=== PATIENT | male | born 1945 | race Caucasian/White ===

== ENCOUNTER 2021-01-24 18:15 | Inpatient (IN) | payer MEDICARE ==
[~2021-01-24] VITALS: Ht 177.8 cm; Wt 81.7 kg
[2021-01-24] MEDS ORDERED: NAPR-855 PO (18:52)
[2021-01-24] MEDS ORDERED: VITA1CAP21 PO (18:52)
[2021-01-24] MEDS ORDERED: NOXI1TAB PO (18:52)
[2021-01-24] MEDS ORDERED: SILD20TA11 PO (18:52)
[2021-01-24] MEDS ORDERED: ECOT81TA5 PO (18:52)
[2021-01-24] MEDS ORDERED: NS 1,000 ML IV ONE (19:25)
[2021-01-24 20:01] LABS: BASO % 0.5 % (0.0-1.0); EOS % 0.4 % (0.0-3.0); HEMOGLOBIN 13.2 g/dl (13.5-17.5); LYMPH # 1.4 10^3/uL (1.5-5.0); LYMPH % 17.5 % (24.0-44.0); MEAN CORPUSCULAR HEMOGLOBIN 33.5 pg (27.0-33.0); MEAN CORPUSCULAR HGB CONC 33.8 g/dl (32.0-36.5); MONO # 0.6 10^3/uL (0.0-0.8); MONO % 7.4 % (2.0-8.0); NEUTROPHILS # 5.9 10^3/uL (1.5-8.5); NEUTROPHILS % 73.8 % (36.0-66.0); PLATELET COUNT, AUTOMATED 201 10^3/uL (150-450); RED BLOOD COUNT 3.94 10^6/uL (4.30-6.10)
[2021-01-24 20:15] LABS: INR 1.01; PROTHROMBIN TIME 13.7 SECONDS (12.7-14.5)
[2021-01-24 20:16] LABS: PARTIAL THROMBOPLASTIN TIME 23.1 SECONDS (25.9-37.0)
[2021-01-24 20:34] LABS: ALBUMIN 3.3 GM/DL (3.2-5.2); ALT/SGPT 28 U/L (12-78); BILIRUBIN,TOTAL 0.6 MG/DL (0.2-1.0); BLOOD UREA NITROGEN 16 MG/DL (7-18); CALCIUM LEVEL 8.9 MG/DL (8.8-10.2); CARBON DIOXIDE LEVEL 27 MEQ/L (21-32); CHLORIDE LEVEL 109 MEQ/L (98-107); CREATININE FOR GFR 1.07 MG/DL (0.70-1.30); GLOMERULAR FILTRATION RATE > 60.0 (>42); GLUCOSE, FASTING 125 MG/DL (70-100); POTASSIUM SERUM 4.2 MEQ/L (3.5-5.1); SODIUM LEVEL 145 MEQ/L (136-145); TOTAL PROTEIN 6.5 GM/DL (6.4-8.2)
[2021-01-24 20:39] LABS: CK-MB VALUE MASS < 1.0 NG/ML (<3.6); CPK CREATINE PHOSPHOKINASE 81 U/L (39-308); LIPASE 283 U/L (73-393); MB/CK RELATIVE INDEX 1.23 (< OR =4); TROPONIN I < 0.02 NG/ML (< 0.10)
[2021-01-24] MEDS ORDERED: LORazepam 2 MG TAB PO PRN (22:25)
[2021-01-24] MEDS ORDERED: MOM 30ML SUSPENSION UDC PO PRN (22:25)
[2021-01-24] MEDS ORDERED: ACETAMINOPHEN TAB 650MG DOSE (2X325MG) PO PRN (22:25)
[2021-01-24] MEDS ORDERED: PRESCAP PO (22:51)
[2021-01-24] MEDS ORDERED: ALEV220T22 PO (22:51)
[2021-01-24] MEDS ORDERED: HOME MED LIST COMPLETE! XX SCH (22:55)
[2021-01-24 23:26] LABS: RSV AMPLIFICATION NEGATIVE (NEGATIVE)
[2021-01-25] VITALS (8 sets, daily range): BP systolic 103–153; BP diastolic 55–82
[2021-01-25] MEDS: THIAMINE 100 MG TAB PO SCH ×3 (00:54→20:27)
[2021-01-25] MEDS: PANTOPRAZOLE 40MG VIAL (C9113 PER 1) IV SCH ×3 (00:54→20:27)
[2021-01-25 03:08] LABS: HEMATOCRIT 32.6 % (42.0-52.0); MEAN CORPUSCULAR HEMOGLOBIN 33.3 pg (27.0-33.0); MEAN CORPUSCULAR HGB CONC 33.1 g/dl (32.0-36.5); MEAN CORPUSCULAR VOLUME 100.6 fl (80.0-96.0); PLATELET COUNT, AUTOMATED 174 10^3/uL (150-450); RED BLOOD COUNT 3.24 10^6/uL (4.30-6.10); WHITE BLOOD COUNT 5.6 10^3/uL (4.0-10.0)
[2021-01-25 03:11] LABS: HEMOGLOBIN 10.8 g/dl (13.5-17.5)
[2021-01-25 03:33] LABS: ALBUMIN 2.7 GM/DL (3.2-5.2); ALT/SGPT 24 U/L (12-78); BILIRUBIN,TOTAL 0.8 MG/DL (0.2-1.0); BLOOD UREA NITROGEN 16 MG/DL (7-18); CALCIUM LEVEL 7.9 MG/DL (8.8-10.2); CARBON DIOXIDE LEVEL 29 MEQ/L (21-32); CHLORIDE LEVEL 113 MEQ/L (98-107); CREATININE FOR GFR 0.84 MG/DL (0.70-1.30); GLOMERULAR FILTRATION RATE > 60.0 (>42); GLUCOSE, FASTING 102 MG/DL (70-100); MAGNESIUM LEVEL 1.9 MG/DL (1.8-2.4); POTASSIUM SERUM 3.8 MEQ/L (3.5-5.1); SODIUM LEVEL 147 MEQ/L (136-145); TOTAL PROTEIN 5.8 GM/DL (6.4-8.2)
[2021-01-25] MEDS: MULTIVITAMINS/MINERALS THERAP 1 TAB PO SCH (08:13)
[2021-01-25] MEDS: FOLIC ACID 1 MG TAB PO SCH (08:14)
[2021-01-25] MEDS ORDERED: SLF 3 ML SYR IV PRN (09:00)
[2021-01-25 10:25] LABS: HEMATOCRIT 31.1 % (42.0-52.0); HEMOGLOBIN 10.3 g/dl (13.5-17.5)
[2021-01-25] MEDS ORDERED: MOM 30ML SUSPENSION UDC PO ONE (13:00)
[2021-01-25] MEDS: SLF 3 ML SYR IV SCH ×2 (13:43→20:27)
[2021-01-25 14:36] LABS: HEMATOCRIT 33.3 % (42.0-52.0); HEMOGLOBIN 11.1 g/dl (13.5-17.5)
[2021-01-25] MEDS ORDERED: POLYETHYLENE GLYCOL (MIRALAX) 238GM BOTTLE PO ONE (17:00)
[2021-01-25 21:33] LABS: HEMATOCRIT 31.2 % (42.0-52.0); HEMOGLOBIN 10.3 g/dl (13.5-17.5)
[2021-01-26] VITALS (8 sets, daily range): BP systolic 118–134; BP diastolic 54–91
[2021-01-26] MEDS ORDERED: POLYETHYLENE GLYCOL (MIRALAX) 238GM BOTTLE PO ONE (06:00)
[2021-01-26] MEDS: SLF 3 ML SYR IV SCH ×3 (06:02→21:15)
[2021-01-26 07:58] LABS: HEMOGLOBIN 10.2 g/dl (13.5-17.5); MEAN CORPUSCULAR HEMOGLOBIN 33.4 pg (27.0-33.0); MEAN CORPUSCULAR HGB CONC 32.9 g/dl (32.0-36.5); MEAN CORPUSCULAR VOLUME 101.6 fl (80.0-96.0); PLATELET COUNT, AUTOMATED 167 10^3/uL (150-450); RED BLOOD COUNT 3.05 10^6/uL (4.30-6.10)
[2021-01-26] MEDS: THIAMINE 100 MG TAB PO SCH ×2 (08:18→20:44)
[2021-01-26] MEDS: FOLIC ACID 1 MG TAB PO SCH (08:18)
[2021-01-26] MEDS: MULTIVITAMINS/MINERALS THERAP 1 TAB PO SCH (08:18)
[2021-01-26] MEDS: PANTOPRAZOLE 40MG VIAL (C9113 PER 1) IV SCH ×2 (08:18→20:44)
[2021-01-26 08:19] LABS: BLOOD UREA NITROGEN 15 MG/DL (7-18); CALCIUM LEVEL 8.1 MG/DL (8.8-10.2); CARBON DIOXIDE LEVEL 29 MEQ/L (21-32); CHLORIDE LEVEL 112 MEQ/L (98-107); CREATININE FOR GFR 0.97 MG/DL (0.70-1.30); GLOMERULAR FILTRATION RATE > 60.0 (>42); GLUCOSE, FASTING 124 MG/DL (70-100); POTASSIUM SERUM 3.4 MEQ/L (3.5-5.1); SODIUM LEVEL 144 MEQ/L (136-145)
[2021-01-26] MEDS ORDERED: propofoL 200 MG/20 ML VIAL As Ordered ONE ×2 (08:50→14:02)
[2021-01-26] MEDS ORDERED: LIDOCAINE 2% 100MG/5ML SDV (FOR ANES.) As Ordered ONE (08:50)
[2021-01-26] MEDS ORDERED: POTASSIUM CHLORIDE 10MEQ SR TABLET PO ONE (11:55)
[2021-01-27] VITALS: BP 106/52
[2021-01-27] MEDS: SLF 3 ML SYR IV SCH (05:33)
[2021-01-27 06:00] VITALS: BP 102/60
[2021-01-27 06:44] LABS: HEMATOCRIT 27.7 % (42.0-52.0); HEMOGLOBIN 9.2 g/dl (13.5-17.5); MEAN CORPUSCULAR HEMOGLOBIN 33.7 pg (27.0-33.0); MEAN CORPUSCULAR HGB CONC 33.2 g/dl (32.0-36.5); MEAN CORPUSCULAR VOLUME 101.5 fl (80.0-96.0); PLATELET COUNT, AUTOMATED 155 10^3/uL (150-450); RED BLOOD COUNT 2.73 10^6/uL (4.30-6.10); WHITE BLOOD COUNT 5.2 10^3/uL (4.0-10.0)
[2021-01-27 07:08] LABS: BLOOD UREA NITROGEN 11 MG/DL (7-18); CALCIUM LEVEL 7.8 MG/DL (8.8-10.2); CARBON DIOXIDE LEVEL 26 MEQ/L (21-32); CHLORIDE LEVEL 113 MEQ/L (98-107); GLOMERULAR FILTRATION RATE > 60.0 (>42); GLUCOSE, FASTING 86 MG/DL (70-100); POTASSIUM SERUM 3.7 MEQ/L (3.5-5.1); SODIUM LEVEL 145 MEQ/L (136-145)
[2021-01-27 08:28] VITALS: BP 110/59
[2021-01-27] MEDS: THIAMINE 100 MG TAB PO SCH (08:29)
[2021-01-27] MEDS: MULTIVITAMINS/MINERALS THERAP 1 TAB PO SCH (08:29)
[2021-01-27] MEDS: PANTOPRAZOLE 40MG VIAL (C9113 PER 1) IV SCH (08:30)
[2021-01-27] MEDS: FOLIC ACID 1 MG TAB PO SCH (08:30)
[2021-01-27 10:00] VITALS: BP 116/60
[2021-01-27] MEDS ORDERED: VITMTA PO (11:38)
[2021-01-27] MEDS ORDERED: FOLI1TAB11 PO (11:38)
[2021-01-27] MEDS ORDERED: THIA100TA PO (11:38)
[2021-01-27] MEDS ORDERED: PROTPAK PO (11:42)
== END 2021-01-27 13:51 | disposition home or self-care (01) | DRG 378 ==
LOC: M ED 18:15 → EDBD 18:15 → M ED INP 18:16 → M PCU 01-25 00:10 → M MSPAV 01-25 18:50
PROVIDERS: ADMIT Family Medicine; ATTEND Internal Medicine
PROC: 0W3P8ZZ Control Bleeding in Gastrointestinal Tract, Via Natural or Artificial Opening Endoscopic (ICD-10-PCS; 2021-01-26)
PROC: 0DBN8ZX Excision of Sigmoid Colon, Via Natural or Artificial Opening Endoscopic, Diagnostic (ICD-10-PCS; 2021-01-26)
PROC: 0DBK8ZX Excision of Ascending Colon, Via Natural or Artificial Opening Endoscopic, Diagnostic (ICD-10-PCS; 2021-01-26)
PROC: 0DBH8ZX Excision of Cecum, Via Natural or Artificial Opening Endoscopic, Diagnostic (ICD-10-PCS; principal; 2021-01-26 13:50)
DX: K92.2 Gastrointestinal hemorrhage, unspecified (principal); D62 Acute posthemorrhagic anemia; R03.0 Elevated blood-pressure reading, without diagnosis of hypertension; F10.10 Alcohol abuse, uncomplicated; G40.909 Epilepsy, unspecified, not intractable, without status epilepticus; Z98.41 Cataract extraction status, right eye; Z98.42 Cataract extraction status, left eye; Z79.82 Long term (current) use of aspirin; Z20.822 Contact with and (suspected) exposure to COVID-19; M54.5 Low back pain; K22.70 Barrett's esophagus without dysplasia; K29.70 Gastritis, unspecified, without bleeding; K63.5 Polyp of colon; K64.8 Other hemorrhoids; K57.30 Diverticulosis of large intestine without perforation or abscess without bleeding

== ENCOUNTER 2021-08-07 13:16 | Emergency (ER) | payer MEDICARE ==
[~2021-08-07] VITALS: Ht 177.8 cm; Wt 85.2 kg
[~2021-08-07 13:16] MED LIST: ALEV220T22 PO; ECOT81TA5 PO; FOLI1TAB11 PO; NAPR-855 PO; NOXI1TAB PO; PRESCAP PO; PROTPAK PO; SILD20TA11 PO; THIA100TA PO; VITA1CAP21 PO; VITMTA PO
[2021-08-07 15:23] LABS: BASO % 0.7 % (0.0-1.0); EOS # 0.1 10^3/uL (0.0-0.5); EOS % 2.1 % (0.0-3.0); HEMATOCRIT 38.7 % (42.0-52.0); HEMOGLOBIN 11.5 g/dl (13.5-17.5); LYMPH # 1.7 10^3/uL (1.5-5.0); LYMPH % 28.4 % (24.0-44.0); MEAN CORPUSCULAR HEMOGLOBIN 23.9 pg (27.0-33.0); MEAN CORPUSCULAR HGB CONC 29.7 g/dl (32.0-36.5); MEAN CORPUSCULAR VOLUME 80.3 fl (80.0-96.0); MONO # 0.5 10^3/uL (0.0-0.8); MONO % 8.6 % (2.0-8.0); NEUTROPHILS # 3.6 10^3/uL (1.5-8.5); PLATELET COUNT, AUTOMATED 287 10^3/uL (150-450); RED BLOOD COUNT 4.82 10^6/uL (4.30-6.10); WHITE BLOOD COUNT 6.1 10^3/uL (4.0-10.0)
[2021-08-07 15:34] LABS: PROTHROMBIN TIME 13.6 SECONDS (12.7-14.5)
[2021-08-07 15:35] LABS: PARTIAL THROMBOPLASTIN TIME 26.5 SECONDS (25.9-37.0)
[2021-08-07 15:56] LABS: BLOOD UREA NITROGEN 11 MG/DL (7-18); CALCIUM LEVEL 8.8 MG/DL (8.8-10.2); CARBON DIOXIDE LEVEL 27 MEQ/L (21-32); CHLORIDE LEVEL 108 MEQ/L (98-107); GLOMERULAR FILTRATION RATE > 60.0 (>42); GLUCOSE, FASTING 101 MG/DL (70-100); NT-PRO BNP 328 PG/ML (<450); POTASSIUM SERUM 4.3 MEQ/L (3.5-5.1); SODIUM LEVEL 142 MEQ/L (136-145)
[2021-08-07 16:00] VITALS: BP 170/88
== END 2021-08-07 16:07 | disposition home or self-care (01) ==
LOC: M ED 13:16
DX: I82.432 Acute embolism and thrombosis of left popliteal vein (principal)

== ENCOUNTER 2021-08-26 18:56 | Emergency (ER) | payer MEDICARE ==
[~2021-08-26] VITALS: Ht 177.8 cm; Wt 85.0 kg
[2021-08-26] MEDS ORDERED: MORPHINE 4 MG/ML 1ML VIAL/SYRINGE (J2270) IV ONE (19:20)
[2021-08-26] MEDS ORDERED: ONDANSETRON 4MG/2ML VIAL IV ONE (19:20)
[2021-08-26 19:39] LABS: BASO # 0.1 10^3/uL (0.0-0.2); BASO % 0.9 % (0.0-1.0); EOS # 0.1 10^3/uL (0.0-0.5); EOS % 2.1 % (0.0-3.0); HEMATOCRIT 40.3 % (42.0-52.0); HEMOGLOBIN 12.3 g/dl (13.5-17.5); LYMPH # 2.8 10^3/uL (1.5-5.0); MEAN CORPUSCULAR HGB CONC 30.5 g/dl (32.0-36.5); MEAN CORPUSCULAR VOLUME 78.6 fl (80.0-96.0); MONO # 0.9 10^3/uL (0.0-0.8); MONO % 13.2 % (2.0-8.0); NEUTROPHILS # 2.8 10^3/uL (1.5-8.5); NEUTROPHILS % 41.7 % (36.0-66.0); PLATELET COUNT, AUTOMATED 261 10^3/uL (150-450); RED BLOOD COUNT 5.13 10^6/uL (4.30-6.10); WHITE BLOOD COUNT 6.7 10^3/uL (4.0-10.0)
[2021-08-26] MEDS ORDERED: GI COCKTAIL 50ML BTL(HYOSCYAMINE/MAALOX/LIDOCAINE VISCOUS)(1:3:1) PO ONE (19:50)
[2021-08-26] MEDS ORDERED: NS 1,000 ML IV ONE ×2 (19:50→20:20)
[2021-08-26 20:03] LABS: ALBUMIN 3.4 GM/DL (3.2-5.2); BILIRUBIN,DIRECT 0.1 MG/DL (0.0-0.2); BILIRUBIN,TOTAL 0.3 MG/DL (0.2-1.0); TOTAL PROTEIN 7.3 GM/DL (6.4-8.2)
[2021-08-26] MEDS ORDERED: ISOVUE-370 76% 100ML VIAL As Ordered ONE (20:09)
[2021-08-26] MEDS ORDERED: VITA100T28 PO (21:26)
[2021-08-26] MEDS ORDERED: THERTAB52 PO (21:26)
[2021-08-26 21:27] LABS: CK-MB VALUE MASS < 1.0 NG/ML (<3.6); CPK CREATINE PHOSPHOKINASE 59 U/L (39-308); MB/CK RELATIVE INDEX 1.69 (< OR =4)
[2021-08-26] MEDS ORDERED: HEPARIN DRIP 25,000 UNITS in IV 1 EA IV SCH (21:30)
[2021-08-26] MEDS ORDERED: HOME MED LIST COMPLETE! XX SCH (21:30)
[2021-08-26 22:00] LABS: RSV AMPLIFICATION NEGATIVE (NEGATIVE)
[2021-08-26 23:10] LABS: INR 1.05; PROTHROMBIN TIME 14.1 SECONDS (12.7-14.5)
[2021-08-26 23:11] LABS: PARTIAL THROMBOPLASTIN TIME 30.5 SECONDS (25.9-37.0)
[2021-08-26] MEDS ORDERED: CALCIUM CARBONATE 500 MG CHEW U/D PO ONE (23:30)
[2021-08-27 00:36] LABS: INR 1.07; PROTHROMBIN TIME 14.3 SECONDS (12.7-14.5)
[2021-08-27 00:38] LABS: PARTIAL THROMBOPLASTIN TIME 94.9 SECONDS (25.9-37.0)
[2021-08-27] MEDS ORDERED: HEPARIN DRIP 25,000 UNITS in IV 1 EA IV SCH (01:00)
[2021-08-27] MEDS ORDERED: CALCIUM CARBONATE 500 MG CHEW U/D PO ONE (02:20)
[2021-08-27 02:38] VITALS: BP 151/75
== END 2021-08-27 02:45 | disposition short-term general hospital (02) ==
LOC: M ED 18:56
DX: K85.90 Acute pancreatitis without necrosis or infection, unspecified (principal); K22.719 Barrett's esophagus with dysplasia, unspecified; I72.2 Aneurysm of renal artery; I48.3 Typical atrial flutter; I26.99 Other pulmonary embolism without acute cor pulmonale; I82.409 Acute embolism and thrombosis of unspecified deep veins of unspecified lower extremity; F41.8 Other specified anxiety disorders; F10.10 Alcohol abuse, uncomplicated; Z79.899 Other long term (current) drug therapy
CPT/HCPCS: 71260; 74177; 80047; 80076; 82550; 82553; 83605; 83690; 83880; 84484; 85025; 85610; 85730; 87631; 93005; 93041; 93971; 96365; 96366; 96375; 99285; J1644; J2270; J2405; Q9967

== ENCOUNTER 2022-01-25 01:40 | Emergency (ER) | payer MEDICARE ==
[~2022-01-25 01:40] MED LIST changes: +THERTAB52 PO; +VITA100T28 PO
[2022-01-25 02:25] LABS: BASO % 0.5 % (0.0-1.0); EOS % 0.2 % (0.0-3.0); HEMATOCRIT 37.3 % (42.0-52.0); LYMPH % 12.2 % (24.0-44.0); MEAN CORPUSCULAR HEMOGLOBIN 24.8 pg (27.0-33.0); MEAN CORPUSCULAR HGB CONC 32.2 g/dl (32.0-36.5); MEAN CORPUSCULAR VOLUME 77.2 fl (80.0-96.0); MONO # 0.4 10^3/uL (0.0-0.8); MONO % 5.2 % (2.0-8.0); NEUTROPHILS # 6.9 10^3/uL (1.5-8.5); NEUTROPHILS % 81.2 % (36.0-66.0); PLATELET COUNT, AUTOMATED 210 10^3/uL (150-450); RED BLOOD COUNT 4.83 10^6/uL (4.30-6.10); WHITE BLOOD COUNT 8.5 10^3/uL (4.0-10.0)
[2022-01-25 02:36] LABS: INR 1.05; PARTIAL THROMBOPLASTIN TIME 27.7 SECONDS (25.9-37.0); PROTHROMBIN TIME 14.1 SECONDS (12.7-14.5)
[2022-01-25 02:53] LABS: ALBUMIN 3.5 GM/DL (3.2-5.2); ALT/SGPT 26 U/L (12-78); BILIRUBIN,DIRECT 0.3 MG/DL (0.0-0.2); BILIRUBIN,TOTAL 0.7 MG/DL (0.2-1.0); BLOOD UREA NITROGEN 11 MG/DL (7-18); CALCIUM LEVEL 9.9 MG/DL (8.8-10.2); CARBON DIOXIDE LEVEL 26 MEQ/L (21-32); CHLORIDE LEVEL 101 MEQ/L (98-107); CREATININE FOR GFR 0.93 MG/DL (0.70-1.30); GLOMERULAR FILTRATION RATE > 60.0 (>42); GLUCOSE, FASTING 145 MG/DL (70-100); LIPASE 296 U/L (73-393); POTASSIUM SERUM 3.6 MEQ/L (3.5-5.1); SODIUM LEVEL 136 MEQ/L (136-145); TOTAL PROTEIN 7.7 GM/DL (6.4-8.2)
[2022-01-25 03:58] LABS: ETHYL ALCOHOL (ETHANOL) < 0.003 % (0.000-0.010)
[2022-01-25] MEDS ORDERED: ONDANSETRON 4MG 2ML VIAL IV ONE (04:00)
[2022-01-25] MEDS ORDERED: ISOVUE-370 76% 100ML VIAL As Ordered ONE (04:01)
[2022-01-25] MEDS: MORPHINE 4 MG/ML 1ML VIAL/SYRINGE IV PRN ×2 (04:26→06:53)
[2022-01-25] MEDS ORDERED: HYDR-3713 PO (08:28)
[2022-01-25 08:41] VITALS: BP 174/81
== END 2022-01-25 09:03 | disposition home or self-care (01) ==
LOC: M ED 01:40 → EDBD 01:40 → M ED 09:03
DX: R10.13 Epigastric pain (principal); I10 Essential (primary) hypertension; F10.10 Alcohol abuse, uncomplicated; M54.50 Low back pain, unspecified; Z87.442 Personal history of urinary calculi
CPT/HCPCS: 74177; 80048; 80076; 82077; 83605; 83690; 85025; 85610; 85730; 86850; 86900; 86901; 96374; 96375; 96376; 99284; J2270; J2405; Q9967

== ENCOUNTER 2022-04-28 19:09 | Emergency (ER) | payer MEDICARE ==
[~2022-04-28] VITALS: Ht 177.8 cm; Wt 84.1 kg
[~2022-04-28 19:09] MED LIST changes: +HYDR-3713 PO
[2022-04-28 20:01] LABS: BASO % 0.5 % (0.0-1.0); EOS # 0.1 10^3/uL (0.0-0.5); EOS % 1.4 % (0.0-3.0); HEMATOCRIT 39.6 % (42.0-52.0); HEMOGLOBIN 12.4 g/dl (13.5-17.5); LYMPH # 1.9 10^3/uL (1.5-5.0); LYMPH % 29.2 % (24.0-44.0); MEAN CORPUSCULAR HEMOGLOBIN 25.1 pg (27.0-33.0); MEAN CORPUSCULAR HGB CONC 31.3 g/dl (32.0-36.5); MONO # 0.6 10^3/uL (0.0-0.8); MONO % 9.5 % (2.0-8.0); NEUTROPHILS # 3.9 10^3/uL (1.5-8.5); NEUTROPHILS % 59.2 % (36.0-66.0); PLATELET COUNT, AUTOMATED 252 10^3/uL (150-450); RED BLOOD COUNT 4.95 10^6/uL (4.30-6.10); WHITE BLOOD COUNT 6.6 10^3/uL (4.0-10.0)
[2022-04-28] MEDS ORDERED: MORPHINE 4 MG/ML 1ML VIAL/SYRINGE IV ONE ×2 (20:10→20:40)
[2022-04-28] MEDS ORDERED: NS 1,000 ML IV ONE (20:10)
[2022-04-28] MEDS ORDERED: ONDANSETRON 4MG 2ML VIAL IV ONE (20:10)
[2022-04-28] MEDS ORDERED: ISOVUE-370 76% 100ML VIAL As Ordered ONE (20:16)
[2022-04-28 20:39] LABS: ALBUMIN 3.7 GM/DL (3.2-5.2); ALT/SGPT 35 U/L (12-78); BILIRUBIN,DIRECT 0.2 MG/DL (0.0-0.2); BILIRUBIN,TOTAL 0.4 MG/DL (0.2-1.0); BLOOD UREA NITROGEN 21 MG/DL (7-18); CALCIUM LEVEL 9.1 MG/DL (8.8-10.2); CARBON DIOXIDE LEVEL 26 MEQ/L (21-32); CHLORIDE LEVEL 105 MEQ/L (98-107); CREATININE FOR GFR 1.01 MG/DL (0.70-1.30); GLOMERULAR FILTRATION RATE > 60.0 (>42); GLUCOSE, FASTING 118 MG/DL (70-100); LIPASE 354 U/L (73-393); POTASSIUM SERUM 3.9 MEQ/L (3.5-5.1); SODIUM LEVEL 140 MEQ/L (136-145); TOTAL PROTEIN 7.9 GM/DL (6.4-8.2)
[2022-04-28] MEDS ORDERED: PANTOPRAZOLE 40MG VIAL IV ONE (22:35)
[2022-04-28] MEDS ORDERED: SUCRALFATE 1 GM TAB PO ONE (22:35)
[2022-04-28] MEDS ORDERED: GI COCKTAIL 50ML BTL(HYOSCYAMINE/MAALOX/LIDOCAINE VISCOUS)(1:3:1) PO ONE (22:35)
[2022-04-28 23:17] VITALS: BP 174/79
[2022-04-28] MEDS ORDERED: ASPIRIN 81 MG CHEW TABLET PO ONE (23:30)
[2022-04-28 23:55] LABS: INR 1.06
[2022-04-28 23:56] LABS: PARTIAL THROMBOPLASTIN TIME 27.2 SECONDS (24.8-34.2)
[2022-04-28 23:59] LABS: NT-PRO BNP 284 PG/ML (<450)
[2022-04-29] MEDS ORDERED: CARA1TAB6 PO (00:29)
[2022-04-29] MEDS ORDERED: FAMO10TA50 PO (00:29)
[2022-04-29] MEDS ORDERED: OMEP-173 PO (00:29)
[2022-04-29 00:58] LABS: CK-MB VALUE MASS < 1.0 NG/ML (<3.6); CPK CREATINE PHOSPHOKINASE 46 U/L (39-308); MB/CK RELATIVE INDEX 2.17 (< OR =4)
[2022-05-02 10:22] LABS: DRVV SCREEN 34.3 SEC
[2022-05-02 10:29] LABS: PTT LUPUS TYPE ANTICOAG SCREEN 0.9 (0-1.2)
== END 2022-04-29 00:41 | disposition home or self-care (01) ==
LOC: M ED 19:09
DX: K21.9 Gastro-esophageal reflux disease without esophagitis (principal); R10.13 Epigastric pain; K44.9 Diaphragmatic hernia without obstruction or gangrene; H34.12 Central retinal artery occlusion, left eye; I72.2 Aneurysm of renal artery; I49.1 Atrial premature depolarization; I10 Essential (primary) hypertension; Z87.442 Personal history of urinary calculi; Z79.811 Long term (current) use of aromatase inhibitors; Z79.899 Other long term (current) drug therapy
CPT/HCPCS: 74177; 80048; 80076; 81240; 81241; 82550; 82553; 83605; 83690; 83880; 84311; 84484; 85025; 85300; 85301; 85303; 85305; 85610; 85730; 86147; 93005; 96361; 96374; 96375; 99284; C9113; J2270; J2405; Q9967

== ENCOUNTER 2023-06-28 07:24 | Inpatient (IN) | payer MEDICARE, OTHER ==
[~2023-06-28] VITALS: Ht 175.3 cm; Wt 82.8 kg
[2023-06-28] VITALS (8 sets, daily range): BP systolic 140–180; BP diastolic 84–98; TEMP 97.6–97.7; O2SAT 86–95
[~2023-06-28 07:24] MED LIST changes: +CARA1TAB6 PO; +FAMO10TA50 PO; +OMEP-173 PO
[2023-06-28] MEDS ORDERED: ONDANSETRON 4MG 2ML VIAL IV ONE (08:15)
[2023-06-28] MEDS ORDERED: NS 1,000 ML IV SCH (08:15)
[2023-06-28] MEDS: MORPHINE 4 MG/ML 1ML VIAL IV PRN ×2 (09:17→09:43)
[2023-06-28 09:27] LABS: BASO # 0.1 10^3/uL (0.0-0.2); BASO % 0.8 % (0.0-1.0); EOS % 0.4 % (0.0-3.0); HEMATOCRIT 41.7 % (42.0-52.0); HEMOGLOBIN 12.9 g/dl (13.5-17.5); LYMPH # 1.3 10^3/uL (1.5-5.0); LYMPH % 17.2 % (24.0-44.0); MEAN CORPUSCULAR HEMOGLOBIN 23.9 pg (27.0-33.0); MEAN CORPUSCULAR HGB CONC 30.9 g/dl (32.0-36.5); MEAN CORPUSCULAR VOLUME 77.2 fl (80.0-96.0); MONO # 0.5 10^3/uL (0.0-0.8); MONO % 6.3 % (2.0-8.0); NEUTROPHILS # 5.7 10^3/uL (1.5-8.5); PLATELET COUNT, AUTOMATED 278 10^3/uL (150-450); WHITE BLOOD COUNT 7.6 10^3/uL (4.0-10.0)
[2023-06-28 09:29] LABS: INR 1.11
[2023-06-28 09:31] LABS: LIPASE 76 U/L (12-53)
[2023-06-28 09:33] LABS: ALBUMIN 3.8 G/DL (3.2-5.2); ALKALINE PHOSPHATASE 87 U/L (46-116); ALT/SGPT 16 U/L (7.0-40); AST/SGOT 44 U/L (<34); BILIRUBIN,DIRECT 0.2 MG/DL (<0.4); BILIRUBIN,TOTAL 0.7 MG/DL (0.3-1.2); BLOOD UREA NITROGEN 16 MG/DL (9-23); CARBON DIOXIDE LEVEL 28 MMOL/L (20-31); CHLORIDE LEVEL 100 MMOL/L (98-107); CREATININE FOR GFR 0.79 MG/DL (0.70-1.30); GLOMERULAR FILTRATION RATE > 60.0 (>42); GLUCOSE, FASTING 120 MG/DL (74-106); POTASSIUM SERUM 4.4 MMOL/L (3.5-5.1); SODIUM LEVEL 134 MMOL/L (136-145); TOTAL PROTEIN 7.8 G/DL (5.7-8.2)
[2023-06-28] MEDS ORDERED: ISOVUE-370 76% 100ML VIAL As Ordered ONE (10:56)
[2023-06-28] MEDS ORDERED: SUCRALFATE SUSP 1GM/10ML UD PO ONE (12:20)
[2023-06-28] MEDS ORDERED: METOCLOPRAMIDE INJ 10MG/2ML VIAL IV ONE (12:20)
[2023-06-28] MEDS ORDERED: PANTOPRAZOLE 40MG VIAL IV ONE ×2 (12:20→15:00)
[2023-06-28] MEDS ORDERED: MED REC IN PROGRESS XX SCH (13:35)
[2023-06-28] MEDS ORDERED: PANT40TA29 PO (14:51)
[2023-06-28] MEDS ORDERED: ELIQ5TAB PO (14:51)
[2023-06-28] MEDS ORDERED: METO1TAB7 PO (14:51)
[2023-06-28] MEDS ORDERED: HOME MED LIST COMPLETE! XX SCH (15:05)
[2023-06-28 15:41] LABS: HEMATOCRIT 39.2 % (42.0-52.0); HEMOGLOBIN 11.9 g/dl (13.5-17.5)
[2023-06-28] MEDS ORDERED: chlordiazePOXIDE 25 MG CAP PO SCH (16:00)
[2023-06-28] MEDS: THIAMINE 100 MG TAB PO SCH (18:15)
[2023-06-28] MEDS: SUCRALFATE 1 GM TAB PO SCH ×2 (18:15→23:13)
[2023-06-28] MEDS: PANTOPRAZOLE 40MG VIAL IV SCH (19:33)
[2023-06-28] MEDS: LORazepam 2 MG TAB PO PRN ×2 (19:33→23:19)
[2023-06-28] MEDS ORDERED: METOPROLOL TART 25 MG TABLET PO ONE (20:40)
[2023-06-28 22:47] LABS: HEMATOCRIT 35.3 % (42.0-52.0); HEMOGLOBIN 10.9 g/dl (13.5-17.5)
[2023-06-29 03:34] VITALS: BP 154/78; TEMP 97.8; O2SAT 95
[2023-06-29 03:43] VITALS: BP 154/78
[2023-06-29] MEDS: SUCRALFATE 1 GM TAB PO SCH ×4 (05:01→23:53)
[2023-06-29 05:33] LABS: BASO % 0.6 % (0.0-1.0); EOS # 0.1 10^3/uL (0.0-0.5); EOS % 2.2 % (0.0-3.0); HEMATOCRIT 35.3 % (42.0-52.0); HEMOGLOBIN 10.9 g/dl (13.5-17.5); LYMPH # 1.4 10^3/uL (1.5-5.0); LYMPH % 21.6 % (24.0-44.0); MEAN CORPUSCULAR HEMOGLOBIN 24.1 pg (27.0-33.0); MEAN CORPUSCULAR HGB CONC 30.9 g/dl (32.0-36.5); MEAN CORPUSCULAR VOLUME 77.9 fl (80.0-96.0); MONO # 0.5 10^3/uL (0.0-0.8); MONO % 7.2 % (2.0-8.0); NEUTROPHILS # 4.4 10^3/uL (1.5-8.5); NEUTROPHILS % 68.2 % (36.0-66.0); PLATELET COUNT, AUTOMATED 245 10^3/uL (150-450); RED BLOOD COUNT 4.53 10^6/uL (4.30-6.10); WHITE BLOOD COUNT 6.5 10^3/uL (4.0-10.0)
[2023-06-29 06:01] LABS: ALBUMIN 3.1 G/DL (3.2-5.2); ALKALINE PHOSPHATASE 70 U/L (46-116); ALT/SGPT 10 U/L (7.0-40); AST/SGOT 20 U/L (<34); BILIRUBIN,TOTAL 0.9 MG/DL (0.3-1.2); BLOOD UREA NITROGEN 11 MG/DL (9-23); CALCIUM LEVEL 8.3 MG/DL (8.3-10.6); CARBON DIOXIDE LEVEL 31 MMOL/L (20-31); CHLORIDE LEVEL 104 MMOL/L (98-107); CREATININE FOR GFR 0.84 MG/DL (0.70-1.30); GLOMERULAR FILTRATION RATE > 60.0 (>42); GLUCOSE, FASTING 91 MG/DL (74-106); MAGNESIUM LEVEL 1.8 MG/DL (1.8-2.4); SODIUM LEVEL 138 MMOL/L (136-145); TOTAL PROTEIN 6.3 G/DL (5.7-8.2)
[2023-06-29 08:00] VITALS: BP 162/74; TEMP 99; O2SAT 97
[2023-06-29] MEDS: THIAMINE 100 MG TAB PO SCH ×2 (08:49→20:06)
[2023-06-29] MEDS: MULTIVITAMINS/MINERALS THERAP 1 TAB PO SCH (08:49)
[2023-06-29] MEDS: FOLIC ACID 1MG TAB PO SCH (08:49)
[2023-06-29] MEDS: PANTOPRAZOLE 40MG VIAL IV SCH ×2 (08:49→20:06)
[2023-06-29] MEDS: METOPROLOL SUCC (TopROL XL) 50MG **XL** TAB PO SCH (08:50)
[2023-06-29 16:00] VITALS: BP 151/71; TEMP 98.6; O2SAT 96
[2023-06-29 20:00] VITALS: BP 124/60; TEMP 97.2; O2SAT 96
[2023-06-30 04:37] VITALS: BP 124/58; TEMP 97.8; O2SAT 95
[2023-06-30 05:15] LABS: BASO # 0.1 10^3/uL (0.0-0.2); BASO % 0.8 % (0.0-1.0); EOS # 0.2 10^3/uL (0.0-0.5); EOS % 3.1 % (0.0-3.0); HEMOGLOBIN 10.6 g/dl (13.5-17.5); LYMPH # 2.4 10^3/uL (1.5-5.0); LYMPH % 38.4 % (24.0-44.0); MEAN CORPUSCULAR HEMOGLOBIN 24.2 pg (27.0-33.0); MEAN CORPUSCULAR HGB CONC 31.2 g/dl (32.0-36.5); MEAN CORPUSCULAR VOLUME 77.6 fl (80.0-96.0); MONO # 0.5 10^3/uL (0.0-0.8); MONO % 7.6 % (2.0-8.0); NEUTROPHILS # 3.2 10^3/uL (1.5-8.5); NEUTROPHILS % 49.9 % (36.0-66.0); PLATELET COUNT, AUTOMATED 250 10^3/uL (150-450); RED BLOOD COUNT 4.38 10^6/uL (4.30-6.10); WHITE BLOOD COUNT 6.4 10^3/uL (4.0-10.0)
[2023-06-30] MEDS: SUCRALFATE 1 GM TAB PO SCH ×3 (05:29→18:08)
[2023-06-30 05:52] LABS: ALBUMIN 2.8 G/DL (3.2-5.2); ALKALINE PHOSPHATASE 63 U/L (46-116); ALT/SGPT 12 U/L (7.0-40); AST/SGOT 22 U/L (<34); BILIRUBIN,TOTAL 0.7 MG/DL (0.3-1.2); BLOOD UREA NITROGEN 10 MG/DL (9-23); CARBON DIOXIDE LEVEL 30 MMOL/L (20-31); CHLORIDE LEVEL 107 MMOL/L (98-107); CREATININE FOR GFR 0.93 MG/DL (0.70-1.30); GLOMERULAR FILTRATION RATE > 60.0 (>42); GLUCOSE, FASTING 95 MG/DL (74-106); MAGNESIUM LEVEL 1.8 MG/DL (1.8-2.4); POTASSIUM SERUM 3.8 MMOL/L (3.5-5.1); SODIUM LEVEL 139 MMOL/L (136-145); TOTAL PROTEIN 5.8 G/DL (5.7-8.2)
[2023-06-30 09:19] VITALS: BP 124/60; TEMP 98.3; O2SAT 96
[2023-06-30] MEDS: PANTOPRAZOLE 40MG VIAL IV SCH ×2 (09:30→21:25)
[2023-06-30] MEDS: THIAMINE 100 MG TAB PO SCH ×2 (09:31→21:25)
[2023-06-30] MEDS: METOPROLOL SUCC (TopROL XL) 50MG **XL** TAB PO SCH (09:31)
[2023-06-30] MEDS: MULTIVITAMINS/MINERALS THERAP 1 TAB PO SCH (09:31)
[2023-06-30] MEDS: FOLIC ACID 1MG TAB PO SCH (09:32)
[2023-06-30] MEDS ORDERED: OCTREOTIDE ACETATE 100MCG/ML VIAL **IV ADMINISTRATION ONLY IV SCH (14:00)
[2023-06-30 17:00] VITALS: BP 110/56; TEMP 98.3; O2SAT 97
[2023-06-30 19:48] VITALS: BP 113/57; TEMP 98; O2SAT 82
[2023-07-01] VITALS (8 sets, daily range): BP systolic 119–156; BP diastolic 56–75; TEMP 97.7–98.6; O2SAT 96–100
[2023-07-01] MEDS: SUCRALFATE 1 GM TAB PO SCH ×4 (00:14→17:28)
[2023-07-01 05:18] LABS: BASO % 0.5 % (0.0-1.0); EOS # 0.2 10^3/uL (0.0-0.5); EOS % 3.2 % (0.0-3.0); HEMOGLOBIN 10.5 g/dl (13.5-17.5); LYMPH # 2.3 10^3/uL (1.5-5.0); LYMPH % 36.3 % (24.0-44.0); MEAN CORPUSCULAR HEMOGLOBIN 24.1 pg (27.0-33.0); MEAN CORPUSCULAR HGB CONC 30.9 g/dl (32.0-36.5); MONO # 0.5 10^3/uL (0.0-0.8); MONO % 8.5 % (2.0-8.0); NEUTROPHILS # 3.3 10^3/uL (1.5-8.5); NEUTROPHILS % 51.3 % (36.0-66.0); PLATELET COUNT, AUTOMATED 248 10^3/uL (150-450); RED BLOOD COUNT 4.36 10^6/uL (4.30-6.10); WHITE BLOOD COUNT 6.3 10^3/uL (4.0-10.0)
[2023-07-01 05:40] LABS: ALBUMIN 2.8 G/DL (3.2-5.2); ALKALINE PHOSPHATASE 63 U/L (46-116); ALT/SGPT 12 U/L (7.0-40); AST/SGOT 22 U/L (<34); BILIRUBIN,TOTAL 0.4 MG/DL (0.3-1.2); BLOOD UREA NITROGEN 11 MG/DL (9-23); CALCIUM LEVEL 8.1 MG/DL (8.3-10.6); CARBON DIOXIDE LEVEL 29 MMOL/L (20-31); CHLORIDE LEVEL 107 MMOL/L (98-107); CREATININE FOR GFR 1.02 MG/DL (0.70-1.30); GLOMERULAR FILTRATION RATE > 60.0 (>42); GLUCOSE, FASTING 108 MG/DL (74-106); MAGNESIUM LEVEL 1.8 MG/DL (1.8-2.4); POTASSIUM SERUM 3.8 MMOL/L (3.5-5.1); SODIUM LEVEL 139 MMOL/L (136-145); TOTAL PROTEIN 5.9 G/DL (5.7-8.2)
[2023-07-01] MEDS: FOLIC ACID 1MG TAB PO SCH (09:52)
[2023-07-01] MEDS: MULTIVITAMINS/MINERALS THERAP 1 TAB PO SCH (09:52)
[2023-07-01] MEDS: PANTOPRAZOLE 40MG VIAL IV SCH ×2 (09:52→20:35)
[2023-07-01] MEDS: THIAMINE 100 MG TAB PO SCH (09:52)
[2023-07-01] MEDS: METOPROLOL SUCC (TopROL XL) 50MG **XL** TAB PO SCH (09:54)
[2023-07-02] MEDS: SUCRALFATE 1 GM TAB PO SCH ×3 (00:21→14:28)
[2023-07-02 04:15] VITALS: BP 152/68; TEMP 98.1; O2SAT 96
[2023-07-02 06:15] LABS: BASO # 0.1 10^3/uL (0.0-0.2); BASO % 1.1 % (0.0-1.0); EOS # 0.2 10^3/uL (0.0-0.5); HEMOGLOBIN 10.9 g/dl (13.5-17.5); LYMPH # 2.1 10^3/uL (1.5-5.0); LYMPH % 38.1 % (24.0-44.0); MEAN CORPUSCULAR HEMOGLOBIN 23.6 pg (27.0-33.0); MEAN CORPUSCULAR HGB CONC 30.3 g/dl (32.0-36.5); MEAN CORPUSCULAR VOLUME 78.1 fl (80.0-96.0); MONO # 0.5 10^3/uL (0.0-0.8); MONO % 9.9 % (2.0-8.0); NEUTROPHILS # 2.6 10^3/uL (1.5-8.5); NEUTROPHILS % 46.5 % (36.0-66.0); PLATELET COUNT, AUTOMATED 245 10^3/uL (150-450); RED BLOOD COUNT 4.61 10^6/uL (4.30-6.10); WHITE BLOOD COUNT 5.5 10^3/uL (4.0-10.0)
[2023-07-02 06:47] LABS: ALKALINE PHOSPHATASE 62 U/L (46-116); ALT/SGPT 14 U/L (7.0-40); AST/SGOT 22 U/L (<34); BILIRUBIN,TOTAL 0.4 MG/DL (0.3-1.2); BLOOD UREA NITROGEN 11 MG/DL (9-23); CARBON DIOXIDE LEVEL 28 MMOL/L (20-31); CHLORIDE LEVEL 107 MMOL/L (98-107); CREATININE FOR GFR 0.92 MG/DL (0.70-1.30); GLOMERULAR FILTRATION RATE > 60.0 (>42); GLUCOSE, FASTING 93 MG/DL (74-106); MAGNESIUM LEVEL 1.7 MG/DL (1.8-2.4); POTASSIUM SERUM 3.8 MMOL/L (3.5-5.1); SODIUM LEVEL 141 MMOL/L (136-145)
[2023-07-02] MEDS ORDERED: PROMETHAZINE 25MG/ML 1ML VIAL IV PRN (10:30)
[2023-07-02] MEDS ORDERED: fentaNYL 100 MCG/2 ML INJECTION IV PRN (10:30)
[2023-07-02] MEDS ORDERED: ONDANSETRON 4MG 2ML VIAL IV PRN ×2 (10:30→12:45)
[2023-07-02] MEDS ORDERED: LR 1,000 ML IV SCH (10:30)
[2023-07-02] MEDS ORDERED: fentaNYL 100 MCG/2 ML INJECTION As Ordered ONE (10:45)
[2023-07-02] MEDS ORDERED: propofoL 200 MG/20 ML VIAL As Ordered ONE (10:45)
[2023-07-02] MEDS ORDERED: LIDOCAINE 2% 100MG/5ML SDV (FOR ANES.) As Ordered ONE (10:45)
[2023-07-02] MEDS ORDERED: ONDANSETRON 4MG 2ML VIAL As Ordered ONE (10:46)
[2023-07-02] MEDS ORDERED: PROT1TAB2 PO (11:28)
[2023-07-02] MEDS ORDERED: SUCR1TA PO (11:28)
[2023-07-02] MEDS ORDERED: FOLI1TAB11 PO (13:39)
[2023-07-02] MEDS ORDERED: VITMTA PO (13:39)
[2023-07-02 14:00] VITALS: BP 138/65; TEMP 98.1; O2SAT 95
[2023-07-02] MEDS: PANTOPRAZOLE 40MG VIAL IV SCH (14:34)
[2023-07-02] MEDS: METOPROLOL SUCC (TopROL XL) 50MG **XL** TAB PO SCH (14:35)
[2023-07-02] MEDS: FOLIC ACID 1MG TAB PO SCH (14:35)
[2023-07-02] MEDS: MULTIVITAMINS/MINERALS THERAP 1 TAB PO SCH (14:35)
== END 2023-07-02 15:38 | disposition home or self-care (01) | DRG 378 ==
LOC: M ED 07:24 → M ED INP 07:25 → OBSVTOIN 15:56 → M ICU 17:18 → M MSPAV 07-01 17:51
PROVIDERS: ADMIT Internal Medicine; ATTEND Internal Medicine
PROC: 0DB58ZX Excision of Esophagus, Via Natural or Artificial Opening Endoscopic, Diagnostic (ICD-10-PCS; principal; 2023-07-02 10:15)
DX: K92.2 Gastrointestinal hemorrhage, unspecified (principal); D62 Acute posthemorrhagic anemia; K29.20 Alcoholic gastritis without bleeding; K22.6 Gastro-esophageal laceration-hemorrhage syndrome; K92.0 Hematemesis; I10 Essential (primary) hypertension; K44.9 Diaphragmatic hernia without obstruction or gangrene; Z86.718 Personal history of other venous thrombosis and embolism; F10.20 Alcohol dependence, uncomplicated; Z98.41 Cataract extraction status, right eye; Z98.42 Cataract extraction status, left eye; Z79.899 Other long term (current) drug therapy; Z66 Do not resuscitate

== ENCOUNTER 2023-09-04 01:06 | Emergency (ER) | payer MEDICARE, OTHER ==
[~2023-09-04] VITALS: Ht 175.3 cm; Wt 82.0 kg
[~2023-09-04 01:06] MED LIST changes: +ELIQ5TAB PO; +METO1TAB7 PO; +PANT40TA29 PO; +PROT1TAB2 PO; +SUCR1TA PO
[2023-09-04 02:30] LABS: BASO % 0.4 % (0.0-1.0); EOS % 0.3 % (0.0-3.0); HEMATOCRIT 36.1 % (42.0-52.0); HEMOGLOBIN 10.9 g/dl (13.5-17.5); LYMPH # 1.4 10^3/uL (1.5-5.0); LYMPH % 19.9 % (24.0-44.0); MEAN CORPUSCULAR HEMOGLOBIN 22.4 pg (27.0-33.0); MEAN CORPUSCULAR HGB CONC 30.2 g/dl (32.0-36.5); MEAN CORPUSCULAR VOLUME 74.3 fl (80.0-96.0); MONO # 0.5 10^3/uL (0.0-0.8); MONO % 6.6 % (2.0-8.0); NEUTROPHILS # 4.9 10^3/uL (1.5-8.5); NEUTROPHILS % 72.5 % (36.0-66.0); PLATELET COUNT, AUTOMATED 245 10^3/uL (150-450); RED BLOOD COUNT 4.86 10^6/uL (4.30-6.10); WHITE BLOOD COUNT 6.8 10^3/uL (4.0-10.0)
[2023-09-04 02:52] LABS: LIPASE 63 U/L (12-53)
[2023-09-04 02:54] LABS: ALBUMIN 3.6 G/DL (3.2-5.2); ALKALINE PHOSPHATASE 62 U/L (46-116); ALT/SGPT 24 U/L (7.0-40); AST/SGOT 32 U/L (<34); BILIRUBIN,DIRECT 0.2 MG/DL (<0.4); BILIRUBIN,TOTAL 0.6 MG/DL (0.3-1.2); BLOOD UREA NITROGEN 24 MG/DL (9-23); CALCIUM LEVEL 8.4 MG/DL (8.3-10.6); CARBON DIOXIDE LEVEL 27 MMOL/L (20-31); CHLORIDE LEVEL 105 MMOL/L (98-107); CK-MB VALUE MASS < 1.0 NG/ML (<3.6); CPK CREATINE PHOSPHOKINASE 41 U/L (46-171); CREATININE FOR GFR 0.82 MG/DL (0.70-1.30); GLOMERULAR FILTRATION RATE > 60.0 (>42); GLUCOSE, FASTING 120 MG/DL (74-106); MB/CK RELATIVE INDEX 2.43 (< OR =4); POTASSIUM SERUM 4.1 MMOL/L (3.5-5.1); SODIUM LEVEL 137 MMOL/L (136-145); TOTAL PROTEIN 7.4 G/DL (5.7-8.2)
[2023-09-04] MEDS: ONDANSETRON 4MG 2ML VIAL IV ONE (04:18)
[2023-09-04 04:39] LABS: PARTIAL THROMBOPLASTIN TIME 26.4 SECONDS (24.8-34.2)
[2023-09-04 04:52] LABS: CPK CREATINE PHOSPHOKINASE 58 U/L (46-171)
[2023-09-04 04:56] LABS: CK-MB VALUE MASS < 1.0 NG/ML (<3.6); MB/CK RELATIVE INDEX 1.72 (< OR =4)
[2023-09-04] MEDS: MORPHINE 4 MG/ML 1ML VIAL IV ONE (04:57)
[2023-09-04 05:55] VITALS: BP 203/90
[2023-09-04] MEDS: LABETALOL 100MG/20ML VIAL IV STA (05:55)
[2023-09-04 07:31] LABS: INR 1.09; PROTHROMBIN TIME 13.8 SECONDS (12.5-14.5)
[2023-09-04] MEDS: PANTOPRAZOLE 40MG VIAL IV ONE (07:33)
[2023-09-04] MEDS: SUCRALFATE 1 GM TAB PO ONE (07:33)
[2023-09-04 07:39] LABS: ETHYL ALCOHOL (ETHANOL) < 0.003 % (0.000-0.010)
[2023-09-04 08:19] LABS: APPEARANCE, URINE HAZY (CLEAR); BACTERIA, URINE AUTO NEGATIVE (NEGATIVE); BILIRUBIN, URINE AUTO NEGATIVE (NEGATIVE); BLOOD, URINE BLOOD NEGATIVE (NEGATIVE); COLOR, URINE YELLOW (YELLOW); GLUCOSE, URINE (UA) AUTO NEGATIVE (NEGATIVE); KETONE, URINE AUTO 1+ mg/dL (NEGATIVE); LEUKOCYTE ESTERASE, URINE AUTO NEGATIVE (NEGATIVE); MUCUS, URINE LARGE (NEGATIVE); NITRITE, URINE AUTO NEGATIVE (NEGATIVE); PROTEIN, URINE AUTO 1+ mg/dL (NEGATIVE); RBC, URINE AUTO 0 /HPF (0-3); SPECIFIC GRAVITY URINE AUTO 1.025 (1.002-1.035); SQUAMOUS EPITHELIAL CELL UR AU 0 /HPF (0-6); UROBILINOGEN, URINE AUTO 0.2 mg/dL (0.0-2.0); WBC, URINE AUTO 1 /HPF (0-3)
[2023-09-04] MEDS ORDERED: CARA1TAB6 PO (09:23)
[2023-09-04] MEDS ORDERED: ONDA4TAB6 PO (09:25)
[2023-09-04 09:30] VITALS: BP 174/93; TEMP 97.2; O2SAT 95
== END 2023-09-04 09:55 | disposition home or self-care (01) ==
LOC: M ED 01:06
DX: K22.70 Barrett's esophagus without dysplasia (principal); K29.60 Other gastritis without bleeding; I44.0 Atrioventricular block, first degree; F10.10 Alcohol abuse, uncomplicated; Z79.83 Long term (current) use of bisphosphonates; Z79.810 Long term (current) use of selective estrogen receptor modulators (SERMs); Z79.899 Other long term (current) drug therapy
CPT/HCPCS: 71045; 80048; 80076; 81001; 82077; 82550; 82553; 83690; 84484; 85025; 85610; 85730; 86850; 86900; 86901; 93005; 96374; 96375; 99285; C9113; J1920; J2405

== ENCOUNTER 2024-02-06 14:21 | Emergency (ER) | payer OTHER ==
[~2024-02-06] VITALS: Ht 170.2 cm; Wt 90.9 kg
[~2024-02-06 14:21] MED LIST changes: +ONDA-282 PO
[2024-02-06 14:47] VITALS: TEMP 98.1
[2024-02-06 15:38] LABS: BASO # 0.1 10^3/uL (0.0-0.2); BASO % 0.9 % (0.0-1.0); EOS # 0.1 10^3/uL (0.0-0.5); EOS % 1.9 % (0.0-3.0); HEMATOCRIT 31.2 % (42.0-52.0); LYMPH # 1.5 10^3/uL (1.5-5.0); LYMPH % 27.7 % (24.0-44.0); MEAN CORPUSCULAR HEMOGLOBIN 18.9 pg (27.0-33.0); MEAN CORPUSCULAR HGB CONC 28.8 g/dl (32.0-36.5); MEAN CORPUSCULAR VOLUME 65.5 fl (80.0-96.0); MONO # 0.5 10^3/uL (0.0-0.8); MONO % 9.9 % (2.0-8.0); NEUTROPHILS # 3.2 10^3/uL (1.5-8.5); NEUTROPHILS % 59.4 % (36.0-66.0); PLATELET COUNT, AUTOMATED 288 10^3/uL (150-450); RED BLOOD COUNT 4.76 10^6/uL (4.30-6.10); WHITE BLOOD COUNT 5.3 10^3/uL (4.0-10.0)
[2024-02-06 15:57] LABS: INR 1.48; PROTHROMBIN TIME 17.5 SECONDS (12.5-14.5)
[2024-02-06 15:59] LABS: ALBUMIN 3.6 G/DL (3.2-5.2); ALKALINE PHOSPHATASE 77 U/L (46-116); ALT/SGPT 12 U/L (7.0-40); AST/SGOT 23 U/L (<34); BILIRUBIN,DIRECT 0.2 MG/DL (<0.4); BILIRUBIN,TOTAL 0.7 MG/DL (0.3-1.2); BLOOD UREA NITROGEN 12 MG/DL (9-23); CALCIUM LEVEL 8.6 MG/DL (8.3-10.6); CARBON DIOXIDE LEVEL 29 MMOL/L (20-31); CHLORIDE LEVEL 108 MMOL/L (98-107); CREATININE FOR GFR 0.95 MG/DL (0.70-1.30); GLOMERULAR FILTRATION RATE > 60.0 (>35); GLUCOSE, FASTING 97 MG/DL (74-106); MAGNESIUM LEVEL 1.9 MG/DL (1.8-2.4); POTASSIUM SERUM 4.2 MMOL/L (3.5-5.1); SODIUM LEVEL 141 MMOL/L (136-145); TOTAL PROTEIN 7.5 G/DL (5.7-8.2)
[2024-02-06 16:00] VITALS: BP 185/91
[2024-02-06] MEDS ORDERED: ISOVUE-370 76% 100ML VIAL As Ordered ONE (16:11)
[2024-02-06 17:36] VITALS: O2SAT 96
== END 2024-02-06 18:02 | disposition home or self-care (01) ==
LOC: EDBD 14:21 → M ED 14:21
DX: I82.502 Chronic embolism and thrombosis of unspecified deep veins of left lower extremity (principal); K80.20 Calculus of gallbladder without cholecystitis without obstruction; I10 Essential (primary) hypertension; Z79.83 Long term (current) use of bisphosphonates; Z79.899 Other long term (current) drug therapy
CPT/HCPCS: 36415; 71275; 80048; 80076; 83735; 85025; 85610; 85730; 93041; 93971; 94760; 99285; Q9967

== ENCOUNTER 2024-02-27 09:03 | Emergency (ER) | payer OTHER ==
[~2024-02-27] VITALS: Ht 177.8 cm; Wt 87.0 kg
[~2024-02-27 09:03] MED LIST changes: +FERR325T3 PO; +MYSO50TA5 PO; +ZOLP5TAB PO; +prevagen PO
[2024-02-27 11:54] LABS: HEMOGLOBIN 9.2 g/dl (13.5-17.5); MEAN CORPUSCULAR HEMOGLOBIN 18.8 pg (27.0-33.0); MEAN CORPUSCULAR HGB CONC 28.8 g/dl (32.0-36.5); MEAN CORPUSCULAR VOLUME 65.4 fl (80.0-96.0); PLATELET COUNT, AUTOMATED 262 10^3/uL (150-450); RED BLOOD COUNT 4.89 10^6/uL (4.30-6.10); WHITE BLOOD COUNT 5.8 10^3/uL (4.0-10.0)
[2024-02-27 12:07] LABS: BLOOD UREA NITROGEN 14 MG/DL (9-23); CALCIUM LEVEL 8.5 MG/DL (8.3-10.6); CARBON DIOXIDE LEVEL 26 MMOL/L (20-31); CHLORIDE LEVEL 105 MMOL/L (98-107); CREATININE FOR GFR 0.98 MG/DL (0.70-1.30); GLOMERULAR FILTRATION RATE > 60.0 (>35); GLUCOSE, FASTING 85 MG/DL (74-106); POTASSIUM SERUM 4.2 MMOL/L (3.5-5.1); SODIUM LEVEL 137 MMOL/L (136-145)
[2024-02-27] MEDS ORDERED: ISOVUE-370 76% 100ML VIAL As Ordered ONE (12:15)
[2024-02-27 13:57] VITALS: BP 157/70; TEMP 99; O2SAT 98
== END 2024-02-27 15:15 | disposition home or self-care (01) ==
LOC: M ED 09:03
DX: R06.00 Dyspnea, unspecified (principal); I10 Essential (primary) hypertension; M54.50 Low back pain, unspecified; F10.10 Alcohol abuse, uncomplicated; Z79.01 Long term (current) use of anticoagulants; Z79.899 Other long term (current) drug therapy; Z86.718 Personal history of other venous thrombosis and embolism; Z87.442 Personal history of urinary calculi
CPT/HCPCS: 36415; 71275; 80048; 85027; 99284; Q9967

== ENCOUNTER 2024-03-10 05:23 | Emergency (ER) | payer OTHER ==
[~2024-03-10] VITALS: Ht 177.8 cm; Wt 88.1 kg
[2024-03-10 05:39] VITALS: TEMP 96
[2024-03-10] MEDS: METOCLOPRAMIDE INJ 10MG/2ML VIAL IV ONE (05:54)
[2024-03-10 06:30] LABS: BASO # 0.1 10^3/uL (0.0-0.2); BASO % 0.6 % (0.0-1.0); EOS # 0.1 10^3/uL (0.0-0.5); HEMOGLOBIN 8.9 g/dl (13.5-17.5); LYMPH # 1.6 10^3/uL (1.5-5.0); MEAN CORPUSCULAR HEMOGLOBIN 18.4 pg (27.0-33.0); MEAN CORPUSCULAR HGB CONC 28.7 g/dl (32.0-36.5); MEAN CORPUSCULAR VOLUME 64.2 fl (80.0-96.0); MONO # 0.5 10^3/uL (0.0-0.8); MONO % 6.8 % (2.0-8.0); NEUTROPHILS # 5.7 10^3/uL (1.5-8.5); NEUTROPHILS % 71.2 % (36.0-66.0); PLATELET COUNT, AUTOMATED 275 10^3/uL (150-450); RED BLOOD COUNT 4.83 10^6/uL (4.30-6.10)
[2024-03-10 06:55] LABS: ALBUMIN 3.7 G/DL (3.2-5.2); ALKALINE PHOSPHATASE 76 U/L (46-116); ALT/SGPT 11 U/L (7.0-40); AST/SGOT 23 U/L (<34); BILIRUBIN,DIRECT 0.2 MG/DL (<0.4); BILIRUBIN,TOTAL 0.6 MG/DL (0.3-1.2); BLOOD UREA NITROGEN 16 MG/DL (9-23); CALCIUM LEVEL 8.6 MG/DL (8.3-10.6); CARBON DIOXIDE LEVEL 28 MMOL/L (20-31); CHLORIDE LEVEL 98 MMOL/L (98-107); CK-MB VALUE MASS < 1.0 NG/ML (<3.6); CPK CREATINE PHOSPHOKINASE 91 U/L (46-171); CREATININE FOR GFR 0.87 MG/DL (0.70-1.30); GLOMERULAR FILTRATION RATE > 60.0 (>35); GLUCOSE, FASTING 119 MG/DL (74-106); MB/CK RELATIVE INDEX 1.09 (< OR =4); POTASSIUM SERUM 3.8 MMOL/L (3.5-5.1); SODIUM LEVEL 132 MMOL/L (136-145); TOTAL PROTEIN 7.7 G/DL (5.7-8.2)
[2024-03-10 08:14] LABS: CK-MB VALUE MASS < 1.0 NG/ML (<3.6)
[2024-03-10 08:15] LABS: CPK CREATINE PHOSPHOKINASE 92 U/L (46-171); MB/CK RELATIVE INDEX 1.08 (< OR =4)
[2024-03-10 08:23] LABS: MAGNESIUM LEVEL 1.7 MG/DL (1.8-2.4)
[2024-03-10] MEDS: FUROSEMIDE 40MG/4ML VIAL IV ONE (09:01)
[2024-03-10] MEDS ORDERED: HYDR12CA PO (09:54)
[2024-03-10] MEDS ORDERED: SYMB80INH INH (09:54)
[2024-03-10] MEDS ORDERED: HOME MED LIST COMPLETE! XX SCH (10:00)
[2024-03-10] MEDS: MAG SULF 1GM/100ML (MAG RUN) 1 GM in IV 1 EA IV SCH (10:30)
[2024-03-10] MEDS ORDERED: LASI20TA3 PO (10:43)
[2024-03-10 10:50] VITALS: O2SAT 94
[2024-03-10 11:45] VITALS: BP 157/71
== END 2024-03-10 11:56 | disposition home or self-care (01) ==
LOC: M ED 05:23
DX: I50.22 Chronic systolic (congestive) heart failure (principal); J98.11 Atelectasis; I10 Essential (primary) hypertension; K21.9 Gastro-esophageal reflux disease without esophagitis; K74.60 Unspecified cirrhosis of liver; F10.10 Alcohol abuse, uncomplicated; I44.0 Atrioventricular block, first degree; Z79.899 Other long term (current) drug therapy
CPT/HCPCS: 71045; 80048; 80076; 82550; 82553; 83605; 83735; 83880; 84484; 85025; 93005; 93041; 94760; 96374; 96375; 97161; 97530; 99285; J1940; J2765; J3475

== ENCOUNTER 2024-03-22 23:25 | Observation (INO) | payer OTHER ==
[~2024-03-22] VITALS: Ht 177.8 cm; Wt 88.2 kg
[~2024-03-22 23:25] MED LIST changes: +HYDR12CA PO; +LASI20TA3 PO; +SYMB80INH INH
[2024-03-23 01:49] LABS: BASO # 0.1 10^3/uL (0.0-0.2); BASO % 0.6 % (0.0-1.0); EOS # 0.1 10^3/uL (0.0-0.5); EOS % 0.6 % (0.0-3.0); HEMATOCRIT 33.1 % (42.0-52.0); HEMOGLOBIN 9.5 g/dl (13.5-17.5); LYMPH # 1.3 10^3/uL (1.5-5.0); LYMPH % 13.6 % (24.0-44.0); MEAN CORPUSCULAR HEMOGLOBIN 18.3 pg (27.0-33.0); MEAN CORPUSCULAR HGB CONC 28.7 g/dl (32.0-36.5); MEAN CORPUSCULAR VOLUME 63.9 fl (80.0-96.0); MONO # 0.5 10^3/uL (0.0-0.8); MONO % 5.5 % (2.0-8.0); NEUTROPHILS # 7.8 10^3/uL (1.5-8.5); NEUTROPHILS % 79.4 % (36.0-66.0); PLATELET COUNT, AUTOMATED 336 10^3/uL (150-450); RED BLOOD COUNT 5.18 10^6/uL (4.30-6.10); WHITE BLOOD COUNT 9.8 10^3/uL (4.0-10.0)
[2024-03-23 02:11] LABS: LIPASE 81 U/L (12-53)
[2024-03-23 02:13] LABS: ALBUMIN 3.8 G/DL (3.2-5.2); ALKALINE PHOSPHATASE 83 U/L (46-116); ALT/SGPT 16 U/L (7.0-40); AST/SGOT 28 U/L (<34); BILIRUBIN,DIRECT 0.2 MG/DL (<0.4); BILIRUBIN,TOTAL 0.6 MG/DL (0.3-1.2); BLOOD UREA NITROGEN 16 MG/DL (9-23); CALCIUM LEVEL 8.9 MG/DL (8.3-10.6); CARBON DIOXIDE LEVEL 27 MMOL/L (20-31); CHLORIDE LEVEL 105 MMOL/L (98-107); CREATININE FOR GFR 0.96 MG/DL (0.70-1.30); GLOMERULAR FILTRATION RATE > 60.0 (>35); GLUCOSE, FASTING 117 MG/DL (74-106); POTASSIUM SERUM 4.1 MMOL/L (3.5-5.1); SODIUM LEVEL 137 MMOL/L (136-145); TOTAL PROTEIN 7.7 G/DL (5.7-8.2)
[2024-03-23] MEDS: ONDANSETRON 4MG 2ML VIAL IV ONE (02:49)
[2024-03-23] MEDS: MORPHINE 2 MG/ML 1ML VIAL IV PRN (02:50)
[2024-03-23] MEDS ORDERED: ISOVUE-370 76% 100ML VIAL As Ordered ONE (03:02)
[2024-03-23 03:37] LABS: CK-MB VALUE MASS < 1.0 NG/ML (<3.6); CPK CREATINE PHOSPHOKINASE 124 U/L (46-171)
[2024-03-23] MEDS: LORazepam 2 MG TAB PO PRN (03:50)
[2024-03-23] MEDS: hydrALAZINE 20MG/ML 1ML VIAL IV STA (04:04)
[2024-03-23] MEDS: METOCLOPRAMIDE INJ 10MG/2ML VIAL IV ONE (04:05)
[2024-03-23] MEDS: NS 1,000 ML IV ONE (04:38)
[2024-03-23] MEDS: PANTOPRAZOLE 40MG VIAL IV ONE (05:03)
[2024-03-23] MEDS: LABETALOL 100MG/20ML VIAL IV STA (05:08)
[2024-03-23] MEDS: ANEXSIA, NORCO 7.5MG/325MG TABLET(HYDROCODONE/APAP) PO ONE (05:43)
[2024-03-23] MEDS ORDERED: FURO20TA2 PO (06:05)
[2024-03-23] MEDS ORDERED: HOME MED LIST COMPLETE! XX SCH (06:05)
[2024-03-23] MEDS ORDERED: LORazepam 2 MG TAB PO PRN (06:10)
[2024-03-23] MEDS: SUCRALFATE SUSP 1GM/10ML UD PO ONE (06:21)
[2024-03-23] MEDS: HYDROMORPHONE HCL 0.5 MG/ 0.5 ML SYRINGE IV ONE (06:22)
[2024-03-23 07:04] LABS: IRON (FE) 17 UG/DL (65-175); TOTAL IRON BINDING CAPACITY 426 UG/DL (250-425)
[2024-03-23 07:06] LABS: FERRITIN 14.8 NG/ML (10.5-307.3)
[2024-03-23 07:07] LABS: FOLATE 10.99 NG/ML (>5.4); VITAMIN B12 LEVEL 454 PG/ML (211-911)
[2024-03-23] MEDS: SUCRALFATE SUSP 1GM/10ML UD PO SCH (08:03)
[2024-03-23] MEDS: PANTOPRAZOLE 40MG VIAL IV SCH (08:11)
[2024-03-23] MEDS: LR 1,000 ML IV SCH (08:11)
[2024-03-23] MEDS: MULTIVITAMINS/MINERALS THERAP 1 TAB PO SCH (08:11)
[2024-03-23] MEDS: THIAMINE 100 MG TAB PO SCH (08:12)
[2024-03-23] MEDS: FOLIC ACID 1MG TAB PO SCH (08:12)
[2024-03-23] MEDS: APIXABAN 5 MG TAB (ELIQUIS) PO SCH (08:12)
[2024-03-23] MEDS ORDERED: FOLIC ACID 1MG TAB PO SCH (09:00)
[2024-03-23] MEDS: METOPROLOL SUCC (TopROL XL) 50MG **XL** TAB PO SCH (09:00)
[2024-03-23] MEDS ORDERED: MULTIVITAMINS/MINERALS THERAP 1 TAB PO SCH (09:00)
[2024-03-23] MEDS ORDERED: THIAMINE 100 MG TAB PO SCH (09:00)
[2024-03-23 12:00] VITALS: BP 157/82
[2024-03-23 12:06] VITALS: BP 157/82; TEMP 97.2; O2SAT 91
[2024-03-23] MEDS: METOCLOPRAMIDE INJ 10MG/2ML VIAL IV SCH (12:23)
[2024-03-23] MEDS: SYMBICORT 80/4.5MCG INHALER 6GM INH SCH (14:51)
[2024-03-23 20:00] VITALS: BP 153/80; TEMP 97.5; O2SAT 98
[2024-03-24 04:00] VITALS: BP 149/81; TEMP 97.7; O2SAT 97
[2024-03-24 06:07] LABS: HEMATOCRIT 27.4 % (42.0-52.0); HEMOGLOBIN 7.8 g/dl (13.5-17.5); MEAN CORPUSCULAR HEMOGLOBIN 18.5 pg (27.0-33.0); MEAN CORPUSCULAR HGB CONC 28.5 g/dl (32.0-36.5); MEAN CORPUSCULAR VOLUME 64.9 fl (80.0-96.0); PLATELET COUNT, AUTOMATED 250 10^3/uL (150-450); RED BLOOD COUNT 4.22 10^6/uL (4.30-6.10); WHITE BLOOD COUNT 9.9 10^3/uL (4.0-10.0)
[2024-03-24 06:36] LABS: BLOOD UREA NITROGEN 14 MG/DL (9-23); CALCIUM LEVEL 8.3 MG/DL (8.3-10.6); CARBON DIOXIDE LEVEL 26 MMOL/L (20-31); CHLORIDE LEVEL 106 MMOL/L (98-107); CREATININE FOR GFR 0.85 MG/DL (0.70-1.30); GLOMERULAR FILTRATION RATE > 60.0 (>35); GLUCOSE, FASTING 84 MG/DL (74-106); POTASSIUM SERUM 3.9 MMOL/L (3.5-5.1); SODIUM LEVEL 138 MMOL/L (136-145)
[2024-03-24 08:03] VITALS: BP 134/66
[2024-03-24] MEDS ORDERED: SUCR1ORA PO (11:13)
[2024-03-24] MEDS ORDERED: REGL5TAB2 PO (11:13)
[2024-03-24] MEDS ORDERED: IRON65TA2 PO (11:17)
[2024-03-24] MEDS: FERRIC CARBOXYMALTOSE INJ 750 MG, VIAL MATE ADAPTER 1 EACH in NS 250 ML IV ONE (11:27)
== END 2024-03-24 12:48 | disposition home or self-care (01) ==
LOC: EDBD 23:25 → M ED 23:25 → M ED INP 23:26 → M MSPAV 03-23 12:06
PROVIDERS: ADMIT Internal Medicine; ATTEND Internal Medicine
DX: R10.13 Epigastric pain (principal); R06.00 Dyspnea, unspecified; D50.9 Iron deficiency anemia, unspecified; F10.20 Alcohol dependence, uncomplicated; J44.9 Chronic obstructive pulmonary disease, unspecified; I10 Essential (primary) hypertension; Z86.711 Personal history of pulmonary embolism; Z86.718 Personal history of other venous thrombosis and embolism; K22.70 Barrett's esophagus without dysplasia; Z79.01 Long term (current) use of anticoagulants; Z79.899 Other long term (current) drug therapy
CPT/HCPCS: 36415; 71045; 74177; 80048; 80076; 82550; 82553; 82607; 82728; 82746; 83550; 83690; 84484; 85025; 85027; 87486; 87581; 87633; 87798; 93005; 93306; 94640; 96361; 96374; 96375; 96376; 97116; 97161; 99285; G0378; J0360; J1170; J1439; J1920; J2405; J2470; J2765; Q9967

== ENCOUNTER 2024-03-30 03:05 | Inpatient (IN) | payer OTHER ==
[2024-03-30] VITALS (7 sets, daily range): BP systolic 142–220; BP diastolic 73–102; TEMP 97–97.1; O2SAT 89–98
[~2024-03-30] VITALS: Ht 177.8 cm; Wt 77.3 kg
[~2024-03-30 03:05] MED LIST changes: +FURO20TA2 PO; +IRON65TA2 PO; +REGL5TAB2 PO; +SUCR1ORA PO
[2024-03-30] MEDS: ONDANSETRON 4MG 2ML VIAL IV ONE ×2 (04:25→13:17)
[2024-03-30] MEDS: MORPHINE 4 MG/ML 1ML VIAL IV ONE ×3 (04:26→13:19)
[2024-03-30] MEDS: NS 1,000 ML IV ONE (04:28)
[2024-03-30 04:30] LABS: BASO # 0.1 10^3/uL (0.0-0.2); BASO % 0.7 % (0.0-1.0); EOS # 0.1 10^3/uL (0.0-0.5); HEMATOCRIT 35.4 % (42.0-52.0); HEMOGLOBIN 10.1 g/dl (13.5-17.5); LYMPH # 1.5 10^3/uL (1.5-5.0); LYMPH % 20.5 % (24.0-44.0); MEAN CORPUSCULAR HEMOGLOBIN 19.4 pg (27.0-33.0); MEAN CORPUSCULAR HGB CONC 28.5 g/dl (32.0-36.5); MEAN CORPUSCULAR VOLUME 68.1 fl (80.0-96.0); MONO # 0.7 10^3/uL (0.0-0.8); MONO % 9.4 % (2.0-8.0); NEUTROPHILS # 4.9 10^3/uL (1.5-8.5); PLATELET COUNT, AUTOMATED 252 10^3/uL (150-450); WHITE BLOOD COUNT 7.2 10^3/uL (4.0-10.0)
[2024-03-30 05:29] LABS: BLOOD UREA NITROGEN 10 MG/DL (9-23); CALCIUM LEVEL 8.4 MG/DL (8.3-10.6); CARBON DIOXIDE LEVEL 24 MMOL/L (20-31); CHLORIDE LEVEL 101 MMOL/L (98-107); CREATININE FOR GFR 0.94 MG/DL (0.70-1.30); GLOMERULAR FILTRATION RATE > 60.0 (>35); GLUCOSE, FASTING 100 MG/DL (74-106); MAGNESIUM LEVEL 1.9 MG/DL (1.8-2.4); POTASSIUM SERUM 4.2 MMOL/L (3.5-5.1); SODIUM LEVEL 136 MMOL/L (136-145)
[2024-03-30] MEDS ORDERED: ISOVUE-370 76% 100ML VIAL As Ordered ONE (06:36)
[2024-03-30 06:44] LABS: LIPASE 57 U/L (12-53)
[2024-03-30 06:46] LABS: ALBUMIN 3.4 G/DL (3.2-5.2); ALKALINE PHOSPHATASE 92 U/L (46-116); ALT/SGPT 24 U/L (7.0-40); AST/SGOT 50 U/L (<34); BILIRUBIN,DIRECT 0.2 MG/DL (<0.4); BILIRUBIN,TOTAL 0.5 MG/DL (0.3-1.2); TOTAL PROTEIN 7.5 G/DL (5.7-8.2)
[2024-03-30] MEDS ORDERED: TRAM50TA2 PO ×2 (07:10→08:10)
[2024-03-30] MEDS: HYDROMORPHONE HCL 0.5 MG/ 0.5 ML SYRINGE IV ONE (07:24)
[2024-03-30] MEDS ORDERED: METO5TAB2 PO (08:10)
[2024-03-30] MEDS ORDERED: SUCR1TAB56 PO (08:10)
[2024-03-30] MEDS ORDERED: FERR1TAB8 PO (08:12)
[2024-03-30] MEDS ORDERED: HOME MED LIST COMPLETE! XX SCH (08:15)
[2024-03-30 08:19] LABS: CK-MB VALUE MASS < 1.0 NG/ML (<3.6)
[2024-03-30 08:27] LABS: CPK CREATINE PHOSPHOKINASE 87 U/L (46-171); MB/CK RELATIVE INDEX 1.14 (< OR =4)
[2024-03-30] MEDS: THIAMINE 100 MG TAB PO SCH (09:00)
[2024-03-30] MEDS: MULTIVITAMINS/MINERALS THERAP 1 TAB PO SCH (09:00)
[2024-03-30] MEDS: FOLIC ACID 1MG TAB PO SCH (09:00)
[2024-03-30] MEDS: hydroCHLOROthiazide 12.5 MG CAPSULE PO ONE (09:12)
[2024-03-30] MEDS: METOPROLOL SUCC (TopROL XL) 50MG **XL** TAB PO ONE (09:13)
[2024-03-30] MEDS ORDERED: MOM 30ML SUSPENSION UDC PO PRN (09:45)
[2024-03-30] MEDS ORDERED: ACETAMINOPHEN 325 MG TAB PO PRN (09:45)
[2024-03-30] MEDS ORDERED: MAALOX 30 ML SUSP *UDC PO PRN (09:45)
[2024-03-30] MEDS: PANTOPRAZOLE 40MG TAB (PROTONIX) PO SCH (10:24)
[2024-03-30] MEDS: APIXABAN 5 MG TAB (ELIQUIS) PO SCH (10:47)
[2024-03-30 11:14] LABS: INR 1.19; PROTHROMBIN TIME 14.7 SECONDS (12.5-14.5)
[2024-03-30] MEDS ORDERED: LORazepam 2 MG TAB PO PRN (11:35)
[2024-03-30] MEDS: SUCRALFATE 1 GM TAB PO SCH (12:00)
[2024-03-30] MEDS: traMADol 50 MG TAB PO PRN (15:30)
[2024-03-30] MEDS ORDERED: HYDROMORPHONE HCL 0.5 MG/ 0.5 ML SYRINGE IV PRN (16:05)
[2024-03-30] MEDS: HYDROMORPHONE HCL 0.5 MG/ 0.5 ML SYRINGE IV PRN (16:25)
[2024-03-30] MEDS: METOCLOPRAMIDE 5 MG TAB PO SCH (16:26)
[2024-03-30] MEDS: SUCRALFATE SUSP 1GM/10ML UD PO SCH (18:00)
[2024-03-30] MEDS ORDERED: hydrALAZINE 20MG/ML 1ML VIAL IV PRN (18:05)
[2024-03-30] MEDS: hydrALAZINE 20MG/ML 1ML VIAL IV STA (18:22)
[2024-03-30] MEDS ORDERED: GLUCOSE 4 GM CHEW PO PRN (18:35)
[2024-03-30] MEDS ORDERED: GLUCAGON INJ 1MG VIAL SC PRN (18:35)
[2024-03-30] MEDS ORDERED: DEXTROSE 50% 50ML SYRINGE IV PRN (18:35)
[2024-03-30] MEDS: ONDANSETRON 4MG 2ML VIAL IV PRN (18:39)
[2024-03-30] MEDS: LR 1,000 ML IV SCH (18:40)
[2024-03-30 19:03] LABS: BASO % 0.4 % (0.0-1.0); EOS % 0.3 % (0.0-3.0); HEMOGLOBIN 11.4 g/dl (13.5-17.5); LYMPH # 1.2 10^3/uL (1.5-5.0); LYMPH % 12.3 % (24.0-44.0); MEAN CORPUSCULAR HEMOGLOBIN 19.9 pg (27.0-33.0); MEAN CORPUSCULAR HGB CONC 29.2 g/dl (32.0-36.5); MEAN CORPUSCULAR VOLUME 68.2 fl (80.0-96.0); MONO # 0.6 10^3/uL (0.0-0.8); MONO % 6.3 % (2.0-8.0); NEUTROPHILS % 80.2 % (36.0-66.0); PLATELET COUNT, AUTOMATED 277 10^3/uL (150-450); RED BLOOD COUNT 5.72 10^6/uL (4.30-6.10)
[2024-03-30] MEDS: SYMBICORT 80/4.5MCG INHALER 6GM INH SCH (19:25)
[2024-03-30] MEDS ORDERED: APIXABAN 5 MG TAB (ELIQUIS) PO SCH (21:00)
[2024-03-30] MEDS: hydrALAZINE 20MG/ML 1ML VIAL IV PRN (21:51)
[2024-03-30] MEDS: PANTOPRAZOLE 40MG VIAL IV SCH (21:51)
[2024-03-31] VITALS (23 sets, daily range): BP systolic 132–142; BP diastolic 63–69; TEMP 97.2–98.9; O2SAT 91–98
[2024-03-31 00:15] LABS: HEMATOCRIT 36.9 % (42.0-52.0); HEMOGLOBIN 10.8 g/dl (13.5-17.5); MEAN CORPUSCULAR HEMOGLOBIN 20.1 pg (27.0-33.0); MEAN CORPUSCULAR HGB CONC 29.3 g/dl (32.0-36.5); MEAN CORPUSCULAR VOLUME 68.7 fl (80.0-96.0); PLATELET COUNT, AUTOMATED 259 10^3/uL (150-450); RED BLOOD COUNT 5.37 10^6/uL (4.30-6.10)
[2024-03-31 06:43] LABS: BASO % 0.3 % (0.0-1.0); EOS # 0.1 10^3/uL (0.0-0.5); EOS % 0.7 % (0.0-3.0); HEMATOCRIT 34.6 % (42.0-52.0); HEMOGLOBIN 10.2 g/dl (13.5-17.5); LYMPH # 1.5 10^3/uL (1.5-5.0); LYMPH % 14.9 % (24.0-44.0); MEAN CORPUSCULAR HEMOGLOBIN 20.2 pg (27.0-33.0); MEAN CORPUSCULAR HGB CONC 29.5 g/dl (32.0-36.5); MEAN CORPUSCULAR VOLUME 68.4 fl (80.0-96.0); MONO # 0.8 10^3/uL (0.0-0.8); MONO % 8.4 % (2.0-8.0); NEUTROPHILS # 7.5 10^3/uL (1.5-8.5); NEUTROPHILS % 75.3 % (36.0-66.0); PLATELET COUNT, AUTOMATED 219 10^3/uL (150-450); RED BLOOD COUNT 5.06 10^6/uL (4.30-6.10); WHITE BLOOD COUNT 9.9 10^3/uL (4.0-10.0)
[2024-03-31] MEDS: METOPROLOL SUCC (TopROL XL) 50MG **XL** TAB PO SCH (08:34)
[2024-03-31 08:49] LABS: ALBUMIN 2.9 G/DL (3.2-5.2); ALKALINE PHOSPHATASE 82 U/L (46-116); ALT/SGPT 16 U/L (7.0-40); AST/SGOT 26 U/L (<34); BILIRUBIN,TOTAL 0.6 MG/DL (0.3-1.2); BLOOD UREA NITROGEN 14 MG/DL (9-23); CALCIUM LEVEL 8.1 MG/DL (8.3-10.6); CARBON DIOXIDE LEVEL 25 MMOL/L (20-31); CHLORIDE LEVEL 99 MMOL/L (98-107); CREATININE FOR GFR 0.75 MG/DL (0.70-1.30); GLOMERULAR FILTRATION RATE > 60.0 (>35); GLUCOSE, FASTING 106 MG/DL (74-106); POTASSIUM SERUM 4.2 MMOL/L (3.5-5.1); SODIUM LEVEL 132 MMOL/L (136-145); TOTAL PROTEIN 6.4 G/DL (5.7-8.2)
[2024-03-31] MEDS ORDERED: FERROUS SULFATE 325MG TAB PO SCH (09:00)
[2024-03-31] MEDS: ENOXAPARIN 80MG/0.8ML SYRINGE (J1650 PER 10MG) SC SCH (21:08)
[2024-04-01 03:09] VITALS: BP 114/56; TEMP 97.8; O2SAT 97
[2024-04-01 05:49] LABS: BASO % 0.5 % (0.0-1.0); EOS # 0.1 10^3/uL (0.0-0.5); EOS % 2.2 % (0.0-3.0); HEMATOCRIT 32.2 % (42.0-52.0); HEMOGLOBIN 9.2 g/dl (13.5-17.5); LYMPH # 1.6 10^3/uL (1.5-5.0); LYMPH % 25.2 % (24.0-44.0); MEAN CORPUSCULAR HGB CONC 28.6 g/dl (32.0-36.5); MEAN CORPUSCULAR VOLUME 70.2 fl (80.0-96.0); MONO # 0.4 10^3/uL (0.0-0.8); MONO % 6.5 % (2.0-8.0); NEUTROPHILS # 4.2 10^3/uL (1.5-8.5); NEUTROPHILS % 65.1 % (36.0-66.0); PLATELET COUNT, AUTOMATED 218 10^3/uL (150-450); RED BLOOD COUNT 4.59 10^6/uL (4.30-6.10); WHITE BLOOD COUNT 6.4 10^3/uL (4.0-10.0)
[2024-04-01 06:11] LABS: BLOOD UREA NITROGEN 13 MG/DL (9-23); CALCIUM LEVEL 7.9 MG/DL (8.3-10.6); CARBON DIOXIDE LEVEL 28 MMOL/L (20-31); CHLORIDE LEVEL 103 MMOL/L (98-107); CREATININE FOR GFR 0.91 MG/DL (0.70-1.30); GLOMERULAR FILTRATION RATE > 60.0 (>35); GLUCOSE, FASTING 76 MG/DL (74-106); POTASSIUM SERUM 3.7 MMOL/L (3.5-5.1); SODIUM LEVEL 136 MMOL/L (136-145)
[2024-04-01 07:35] VITALS: BP 129/61; TEMP 98.2; O2SAT 95
[2024-04-01 12:19] VITALS: BP 132/62; TEMP 98.2; O2SAT 97
[2024-04-01 16:00] VITALS: BP 131/65
[2024-04-01] MEDS: GABAPENTIN 100 MG CAP PO SCH (16:00)
[2024-04-01 19:29] VITALS: BP 130/61; TEMP 97.8; O2SAT 95
[2024-04-01 23:08] VITALS: BP 142/65; TEMP 97.5; O2SAT 94
[2024-04-02 03:29] VITALS: BP 141/67; TEMP 97.7; O2SAT 96
[2024-04-02 05:19] LABS: BASO # 0.1 10^3/uL (0.0-0.2); BASO % 1.1 % (0.0-1.0); EOS # 0.1 10^3/uL (0.0-0.5); HEMATOCRIT 32.7 % (42.0-52.0); HEMOGLOBIN 9.4 g/dl (13.5-17.5); LYMPH # 1.5 10^3/uL (1.5-5.0); LYMPH % 26.6 % (24.0-44.0); MEAN CORPUSCULAR HEMOGLOBIN 20.6 pg (27.0-33.0); MEAN CORPUSCULAR HGB CONC 28.7 g/dl (32.0-36.5); MEAN CORPUSCULAR VOLUME 71.6 fl (80.0-96.0); MONO # 0.5 10^3/uL (0.0-0.8); MONO % 9.7 % (2.0-8.0); NEUTROPHILS # 3.3 10^3/uL (1.5-8.5); PLATELET COUNT, AUTOMATED 211 10^3/uL (150-450); RED BLOOD COUNT 4.57 10^6/uL (4.30-6.10); WHITE BLOOD COUNT 5.5 10^3/uL (4.0-10.0)
[2024-04-02 05:39] LABS: BLOOD UREA NITROGEN 14 MG/DL (9-23); CARBON DIOXIDE LEVEL 26 MMOL/L (20-31); CHLORIDE LEVEL 104 MMOL/L (98-107); CREATININE FOR GFR 0.91 MG/DL (0.70-1.30); GLOMERULAR FILTRATION RATE > 60.0 (>35); GLUCOSE, FASTING 68 MG/DL (74-106); POTASSIUM SERUM 3.8 MMOL/L (3.5-5.1); SODIUM LEVEL 136 MMOL/L (136-145)
[2024-04-02] MEDS ORDERED: E-Z-GAS II EFFERVESCENT PACKET (SODIUM BICARB./CITRIC ACID/SIMETHICONE) As Ordered ONE (07:46)
[2024-04-02] MEDS ORDERED: E-Z-PAQUE 96% w/w SUSP 176GM BTL As Ordered ONE (07:46)
[2024-04-02] MEDS ORDERED: E-Z-HD 98% w/w 340GM SUSP BTL As Ordered ONE (07:46)
[2024-04-02 09:29] VITALS: BP 129/60; TEMP 98.1; O2SAT 94
[2024-04-02 11:51] VITALS: BP 142/65; TEMP 97.3; O2SAT 97
[2024-04-02 16:04] VITALS: BP 135/65; TEMP 97; O2SAT 97
[2024-04-02 20:45] VITALS: BP 140/62; TEMP 97.6; O2SAT 96
[2024-04-03] VITALS (8 sets, daily range): BP systolic 141–160; BP diastolic 65–82; TEMP 97.2–98.1; O2SAT 94–97
[2024-04-03 05:44] LABS: BASO # 0.1 10^3/uL (0.0-0.2); EOS # 0.1 10^3/uL (0.0-0.5); EOS % 2.3 % (0.0-3.0); HEMATOCRIT 35.8 % (42.0-52.0); HEMOGLOBIN 10.2 g/dl (13.5-17.5); LYMPH # 1.4 10^3/uL (1.5-5.0); LYMPH % 27.5 % (24.0-44.0); MEAN CORPUSCULAR HEMOGLOBIN 20.4 pg (27.0-33.0); MEAN CORPUSCULAR HGB CONC 28.5 g/dl (32.0-36.5); MEAN CORPUSCULAR VOLUME 71.7 fl (80.0-96.0); MONO # 0.5 10^3/uL (0.0-0.8); MONO % 8.7 % (2.0-8.0); NEUTROPHILS # 3.1 10^3/uL (1.5-8.5); NEUTROPHILS % 60.1 % (36.0-66.0); PLATELET COUNT, AUTOMATED 213 10^3/uL (150-450); RED BLOOD COUNT 4.99 10^6/uL (4.30-6.10); WHITE BLOOD COUNT 5.2 10^3/uL (4.0-10.0)
[2024-04-03 05:50] LABS: BLOOD UREA NITROGEN 14 MG/DL (9-23); CALCIUM LEVEL 8.3 MG/DL (8.3-10.6); CARBON DIOXIDE LEVEL 27 MMOL/L (20-31); CHLORIDE LEVEL 103 MMOL/L (98-107); CREATININE FOR GFR 0.91 MG/DL (0.70-1.30); GLOMERULAR FILTRATION RATE > 60.0 (>35); GLUCOSE, FASTING 84 MG/DL (74-106); POTASSIUM SERUM 3.9 MMOL/L (3.5-5.1); SODIUM LEVEL 138 MMOL/L (136-145)
[2024-04-03 06:44] LABS: HYPOCHROMASIA 2+
[2024-04-03 06:45] LABS: ANISOCYTOSIS 4+; OVALOCYTES 1+; POLYCHROMASIA 2+; TEAR DROP CELLS 1+
[2024-04-03 06:47] LABS: PLATELET ESTIMATE NORMAL (NORMAL)
[2024-04-04] VITALS (7 sets, daily range): BP systolic 120–156; BP diastolic 59–73; TEMP 97.3–98.4; O2SAT 86–98
[2024-04-04 06:25] LABS: BASO % 0.8 % (0.0-1.0); EOS # 0.1 10^3/uL (0.0-0.5); EOS % 2.6 % (0.0-3.0); HEMATOCRIT 37.5 % (42.0-52.0); LYMPH # 1.5 10^3/uL (1.5-5.0); LYMPH % 30.6 % (24.0-44.0); MEAN CORPUSCULAR HEMOGLOBIN 20.9 pg (27.0-33.0); MEAN CORPUSCULAR HGB CONC 29.3 g/dl (32.0-36.5); MEAN CORPUSCULAR VOLUME 71.2 fl (80.0-96.0); MONO # 0.5 10^3/uL (0.0-0.8); MONO % 8.9 % (2.0-8.0); NEUTROPHILS # 2.9 10^3/uL (1.5-8.5); NEUTROPHILS % 56.9 % (36.0-66.0); PLATELET COUNT, AUTOMATED 220 10^3/uL (150-450); RED BLOOD COUNT 5.27 10^6/uL (4.30-6.10)
[2024-04-04 06:43] LABS: BLOOD UREA NITROGEN 11 MG/DL (9-23); CALCIUM LEVEL 8.7 MG/DL (8.3-10.6); CARBON DIOXIDE LEVEL 26 MMOL/L (20-31); CHLORIDE LEVEL 105 MMOL/L (98-107); CREATININE FOR GFR 0.84 MG/DL (0.70-1.30); GLOMERULAR FILTRATION RATE > 60.0 (>35); GLUCOSE, FASTING 87 MG/DL (74-106); POTASSIUM SERUM 3.8 MMOL/L (3.5-5.1); SODIUM LEVEL 138 MMOL/L (136-145)
[2024-04-04] MEDS: APIXABAN 5 MG TAB (ELIQUIS) PO SCH (08:31)
[2024-04-04] MEDS ORDERED: ELIQ5TAB4 PO (11:05)
[2024-04-04] MEDS: MAALOX 30 ML SUSP *UDC PO SCH (12:00)
[2024-04-04] MEDS: HYOSCYAMINE SULFATE 0.125 MG SUBL TABLET SL SCH (13:47)
[2024-04-05 03:34] VITALS: BP 157/71; TEMP 97.8; O2SAT 95
[2024-04-05 06:36] LABS: BASO # 0.1 10^3/uL (0.0-0.2); BASO % 0.6 % (0.0-1.0); EOS % 0.4 % (0.0-3.0); HEMATOCRIT 39.8 % (42.0-52.0); HEMOGLOBIN 11.7 g/dl (13.5-17.5); LYMPH % 9.4 % (24.0-44.0); MEAN CORPUSCULAR HEMOGLOBIN 21.1 pg (27.0-33.0); MEAN CORPUSCULAR HGB CONC 29.4 g/dl (32.0-36.5); MEAN CORPUSCULAR VOLUME 71.8 fl (80.0-96.0); MONO # 0.6 10^3/uL (0.0-0.8); MONO % 5.1 % (2.0-8.0); NEUTROPHILS % 84.1 % (36.0-66.0); PLATELET COUNT, AUTOMATED 262 10^3/uL (150-450); RED BLOOD COUNT 5.54 10^6/uL (4.30-6.10); WHITE BLOOD COUNT 10.7 10^3/uL (4.0-10.0)
[2024-04-05 06:52] LABS: BLOOD UREA NITROGEN 11 MG/DL (9-23); CALCIUM LEVEL 8.8 MG/DL (8.3-10.6); CARBON DIOXIDE LEVEL 27 MMOL/L (20-31); CHLORIDE LEVEL 104 MMOL/L (98-107); CREATININE FOR GFR 0.94 MG/DL (0.70-1.30); GLOMERULAR FILTRATION RATE > 60.0 (>35); GLUCOSE, FASTING 101 MG/DL (74-106); POTASSIUM SERUM 3.7 MMOL/L (3.5-5.1); SODIUM LEVEL 138 MMOL/L (136-145)
[2024-04-05 08:02] VITALS: BP 126/62; O2SAT 95
[2024-04-05 15:54] VITALS: BP 123/62; TEMP 98.9; O2SAT 94
[2024-04-05] MEDS: RAMELTEON 8 MG TAB (ROZEREM) PO PRN (20:37)
[2024-04-05 20:53] VITALS: BP 113/56; TEMP 98.1; O2SAT 96
[2024-04-06] VITALS (8 sets, daily range): BP systolic 95–132; BP diastolic 48–72; TEMP 97.3–98.6; O2SAT 93–98
[2024-04-06 06:14] LABS: BASO % 0.6 % (0.0-1.0); EOS # 0.1 10^3/uL (0.0-0.5); EOS % 1.4 % (0.0-3.0); HEMATOCRIT 36.4 % (42.0-52.0); HEMOGLOBIN 10.8 g/dl (13.5-17.5); LYMPH # 1.9 10^3/uL (1.5-5.0); LYMPH % 26.5 % (24.0-44.0); MEAN CORPUSCULAR HEMOGLOBIN 21.5 pg (27.0-33.0); MEAN CORPUSCULAR HGB CONC 29.7 g/dl (32.0-36.5); MEAN CORPUSCULAR VOLUME 72.5 fl (80.0-96.0); MONO # 0.6 10^3/uL (0.0-0.8); MONO % 8.9 % (2.0-8.0); NEUTROPHILS # 4.5 10^3/uL (1.5-8.5); NEUTROPHILS % 62.2 % (36.0-66.0); PLATELET COUNT, AUTOMATED 236 10^3/uL (150-450); RED BLOOD COUNT 5.02 10^6/uL (4.30-6.10); WHITE BLOOD COUNT 7.2 10^3/uL (4.0-10.0)
[2024-04-06 06:33] LABS: BLOOD UREA NITROGEN 14 MG/DL (9-23); CALCIUM LEVEL 8.5 MG/DL (8.3-10.6); CARBON DIOXIDE LEVEL 28 MMOL/L (20-31); CHLORIDE LEVEL 105 MMOL/L (98-107); CREATININE FOR GFR 1.12 MG/DL (0.70-1.30); GLOMERULAR FILTRATION RATE > 60.0 (>35); GLUCOSE, FASTING 111 MG/DL (74-106); POTASSIUM SERUM 3.7 MMOL/L (3.5-5.1); SODIUM LEVEL 138 MMOL/L (136-145)
[2024-04-06 07:39] LABS: HYPOCHROMASIA 2+
[2024-04-06 07:40] LABS: PLATELET ESTIMATE NORMAL (NORMAL)
[2024-04-06 07:41] LABS: ANISOCYTOSIS 4+; OVALOCYTES 1+; POLYCHROMASIA 1+; TEAR DROP CELLS 1+
[2024-04-07 00:04] VITALS: BP 110/70
[2024-04-07 04:00] VITALS: BP 115/60; TEMP 97.9; O2SAT 92
[2024-04-07 08:00] VITALS: BP 119/61; TEMP 97.1; O2SAT 94
[2024-04-07 09:00] VITALS: BP 113/68
[2024-04-07] MEDS: FLUBLOK(EGGFREE) TRIVAL(24-25) VACCINE PF 0.5ML SYRINGE 18YRS & OLDER IM.IMMUN ONE (10:12)
[2024-04-07] MEDS ORDERED: ELIQ5TAB PO (11:27)
[2024-04-07] MEDS ORDERED: PANT40TA29 PO (12:17)
== END 2024-04-07 12:35 | disposition home health service (06) | DRG 380 ==
LOC: M ED 03:05 → M ED INP 09:47 → M PCU 17:51 → OBSVTOIN 04-01 11:28 → M MS5PR 04-06 16:00
PROVIDERS: ADMIT Internal Medicine; ATTEND Internal Medicine
PROC: 0DB58ZX Excision of Esophagus, Via Natural or Artificial Opening Endoscopic, Diagnostic (ICD-10-PCS; principal; 2024-04-03 14:00)
DX: K22.11 Ulcer of esophagus with bleeding (principal); I26.99 Other pulmonary embolism without acute cor pulmonale; K92.0 Hematemesis; I16.0 Hypertensive urgency; I10 Essential (primary) hypertension; K70.30 Alcoholic cirrhosis of liver without ascites; F10.20 Alcohol dependence, uncomplicated; D50.9 Iron deficiency anemia, unspecified; K44.9 Diaphragmatic hernia without obstruction or gangrene; K22.70 Barrett's esophagus without dysplasia; K57.90 Diverticulosis of intestine, part unspecified, without perforation or abscess without bleeding; R13.10 Dysphagia, unspecified; Z86.718 Personal history of other venous thrombosis and embolism; Z86.711 Personal history of pulmonary embolism; G62.9 Polyneuropathy, unspecified; I44.0 Atrioventricular block, first degree; M54.59 Other low back pain; Z79.899 Other long term (current) drug therapy; Z91.119 Patient's noncompliance with dietary regimen due to unspecified reason; Z98.41 Cataract extraction status, right eye; Z98.42 Cataract extraction status, left eye; Z79.01 Long term (current) use of anticoagulants; Z91.148 Patient's other noncompliance with medication regimen for other reason

== ENCOUNTER → 2024-05-04 | Outpatient (CLI) | payer OTHER ==
[~2024-05-04] MED LIST changes: +ELIQ5TAB4 PO; +FERR1TAB8 PO; +METO5TAB2 PO; +SUCR1TAB56 PO; +TRAM50TA2 PO
[2024-05-04 15:23] LABS: BASO # 0.1 10^3/uL (0.0-0.2); BASO % 1.1 % (0.0-1.0); EOS # 0.1 10^3/uL (0.0-0.5); EOS % 2.1 % (0.0-3.0); HEMATOCRIT 43.6 % (42.0-52.0); HEMOGLOBIN 13.3 g/dl (13.5-17.5); LYMPH # 2.2 10^3/uL (1.5-5.0); LYMPH % 42.6 % (24.0-44.0); MEAN CORPUSCULAR HEMOGLOBIN 23.8 pg (27.0-33.0); MEAN CORPUSCULAR HGB CONC 30.5 g/dl (32.0-36.5); MEAN CORPUSCULAR VOLUME 78.1 fl (80.0-96.0); MONO # 0.4 10^3/uL (0.0-0.8); NEUTROPHILS # 2.4 10^3/uL (1.5-8.5); PLATELET COUNT, AUTOMATED 229 10^3/uL (150-450); RED BLOOD COUNT 5.58 10^6/uL (4.30-6.10); WHITE BLOOD COUNT 5.3 10^3/uL (4.0-10.0)
== END ==
LOC: M PLALAB 14:01
PROVIDERS: ATTEND Internal Medicine Hematology
DX: D50.0 Iron deficiency anemia secondary to blood loss (chronic) (principal)

== ENCOUNTER 2024-05-18 15:08 | Outpatient (CLI) | payer OTHER ==
[~2024-05-18] VITALS: Ht 177.8 cm; Wt 85.0 kg
[~2024-05-18 15:08] MED LIST changes: +ALBUTEROL SULFATE 2.5MG/0.5ML INH NEB SOLN INH PRN; +EPINEPHrine INJ 1 MG/ML 1ML AMP IM PRN; +NS 1,000 ML IV SCH; +diphenhydrAMINE 50MG/ML VIAL IV PRN; +methylPREDNISolone 125MG 2ML VIAL IV PRN
[2024-05-18 15:10] VITALS: BP 147/70; O2SAT 97
[2024-05-18] MEDS: IRON SUCROSE 300 MG in NS 250 ML IV ONE (15:38)
[2024-05-18 17:20] VITALS: BP 126/65; O2SAT 96
== END 2024-05-18 17:20 ==
LOC: M INFU 15:08
PROVIDERS: ATTEND Internal Medicine Hematology
DX: D50.9 Iron deficiency anemia, unspecified (principal)
CPT/HCPCS: 96365; 96366; J1756

== ENCOUNTER 2024-06-05 12:37 | Inpatient (IN) | payer OTHER ==
[~2024-06-05] VITALS: Ht 172.7 cm; Wt 79.0 kg
[~2024-06-05 12:37] MED LIST changes: -ALBUTEROL SULFATE 2.5MG/0.5ML INH NEB SOLN INH PRN; -EPINEPHrine INJ 1 MG/ML 1ML AMP IM PRN; -NS 1,000 ML IV SCH; -diphenhydrAMINE 50MG/ML VIAL IV PRN; -methylPREDNISolone 125MG 2ML VIAL IV PRN
[2024-06-05 13:08] LABS: VENOUS BASE EXCESS 5.4 (-2.0-2.0); VENOUS O2 SATURATION 70.4 % (60.0-80.0); VENOUS PARTIAL PRESSURE CO2 59.5 mmHg (38.0-50.0); VENOUS PARTIAL PRESSURE O2 39.1 mmHg (30.0-50.0); VENOUS PH 7.362 UNITS (7.330-7.430); VENOUS STANDARD HCO3 28.5 MMOL/L; VENOUS TOTAL CO2 34.8 MMOL/L (24.0-28.0)
[2024-06-05] MEDS: PANTOPRAZOLE 40MG VIAL IV ONE (13:12)
[2024-06-05 13:18] LABS: BASO % 0.5 % (0.0-1.0); EOS % 0.4 % (0.0-3.0); HEMOGLOBIN 15.6 g/dl (13.5-17.5); LYMPH # 1.7 10^3/uL (1.5-5.0); LYMPH % 20.5 % (24.0-44.0); MEAN CORPUSCULAR HEMOGLOBIN 27.2 pg (27.0-33.0); MEAN CORPUSCULAR HGB CONC 32.5 g/dl (32.0-36.5); MEAN CORPUSCULAR VOLUME 83.8 fl (80.0-96.0); MONO # 0.6 10^3/uL (0.0-0.8); MONO % 7.3 % (2.0-8.0); NEUTROPHILS # 5.8 10^3/uL (1.5-8.5); NEUTROPHILS % 71.1 % (36.0-66.0); PLATELET COUNT, AUTOMATED 192 10^3/uL (150-450); RED BLOOD COUNT 5.73 10^6/uL (4.30-6.10); WHITE BLOOD COUNT 8.1 10^3/uL (4.0-10.0)
[2024-06-05] MEDS: MORPHINE 2 MG/ML 1ML VIAL IV ONE (13:27)
[2024-06-05 13:34] LABS: INR 1.21; PROTHROMBIN TIME 15.6 SECONDS (12.5-14.5)
[2024-06-05 13:43] LABS: LIPASE 48 U/L (12-53)
[2024-06-05 13:46] LABS: ALBUMIN 3.3 G/DL (3.2-5.2); ALKALINE PHOSPHATASE 82 U/L (40-129); ALT/SGPT 17 U/L (7.0-40); AST/SGOT 44 U/L (<34); BILIRUBIN,DIRECT 0.2 MG/DL (<0.4); BILIRUBIN,TOTAL 0.7 MG/DL (0.3-1.2); BLOOD UREA NITROGEN 17 MG/DL (9-23); CALCIUM LEVEL 9.7 MG/DL (8.3-10.6); CARBON DIOXIDE LEVEL 33 MMOL/L (20-31); CHLORIDE LEVEL 97 MMOL/L (98-107); CREATININE FOR GFR 0.82 MG/DL (0.70-1.30); GLOMERULAR FILTRATION RATE > 60.0 (>35); GLUCOSE, FASTING 114 MG/DL (74-106); POTASSIUM SERUM 3.8 MMOL/L (3.5-5.1); SODIUM LEVEL 138 MMOL/L (136-145); TOTAL PROTEIN 7.6 G/DL (5.7-8.2)
[2024-06-05] MEDS ORDERED: ISOVUE-370 76% 100ML VIAL As Ordered ONE (13:56)
[2024-06-05] MEDS: LIDOCAINE VISCOUS 2% SOLN 15ML UDC PO ONE (15:19)
[2024-06-05] MEDS: SUCRALFATE SUSP 1GM/10ML UD PO ONE (15:19)
[2024-06-05] MEDS ORDERED: ONDANSETRON 4MG 2ML VIAL IV PRN (16:30)
[2024-06-05 17:26] LABS: CPK CREATINE PHOSPHOKINASE 131 U/L (46-171); MB/CK RELATIVE INDEX 0.76 (< OR =4)
[2024-06-05 17:41] LABS: HEMATOCRIT 46.5 % (42.0-52.0); HEMOGLOBIN 14.8 g/dl (13.5-17.5); MEAN CORPUSCULAR HEMOGLOBIN 26.9 pg (27.0-33.0); MEAN CORPUSCULAR HGB CONC 31.8 g/dl (32.0-36.5); MEAN CORPUSCULAR VOLUME 84.4 fl (80.0-96.0); PLATELET COUNT, AUTOMATED 181 10^3/uL (150-450); RED BLOOD COUNT 5.51 10^6/uL (4.30-6.10); WHITE BLOOD COUNT 8.6 10^3/uL (4.0-10.0)
[2024-06-05] MEDS ORDERED: HYDR-3713 PO (17:48)
[2024-06-05] MEDS ORDERED: FERR324T12 PO (17:51)
[2024-06-05 17:53] VITALS: BP 148/85; TEMP 97.7; O2SAT 97
[2024-06-05 17:54] VITALS: BP 148/85
[2024-06-05 18:09] LABS: FERRITIN 116.9 NG/ML (10.5-307.3); FOLATE 13.84 NG/ML (>5.4)
[2024-06-05] MEDS: MULTIVITAMINS/MINERALS THERAP 1 TAB PO SCH (18:14)
[2024-06-05] MEDS: FOLIC ACID 1MG TAB PO SCH (18:14)
[2024-06-05] MEDS: SUCRALFATE SUSP 1GM/10ML UD PO SCH (18:14)
[2024-06-05] MEDS: THIAMINE 100 MG TAB PO SCH (18:16)
[2024-06-05] MEDS ORDERED: HOME MED LIST COMPLETE! XX SCH (18:25)
[2024-06-05 19:50] VITALS: BP 135/76; TEMP 97.7; O2SAT 94
[2024-06-05] MEDS: PANTOPRAZOLE 40MG VIAL IV SCH (20:12)
[2024-06-05 21:26] VITALS: BP 130/82
[2024-06-06 00:39] LABS: HEMATOCRIT 42.4 % (42.0-52.0); HEMOGLOBIN 13.4 g/dl (13.5-17.5); MEAN CORPUSCULAR HEMOGLOBIN 26.8 pg (27.0-33.0); MEAN CORPUSCULAR HGB CONC 31.6 g/dl (32.0-36.5); MEAN CORPUSCULAR VOLUME 84.8 fl (80.0-96.0); PLATELET COUNT, AUTOMATED 182 10^3/uL (150-450)
[2024-06-06 04:00] VITALS: BP 134/75; TEMP 97.9; O2SAT 100
[2024-06-06 07:11] LABS: HEMATOCRIT 42.3 % (42.0-52.0); HEMOGLOBIN 13.7 g/dl (13.5-17.5); MEAN CORPUSCULAR HEMOGLOBIN 27.2 pg (27.0-33.0); MEAN CORPUSCULAR HGB CONC 32.4 g/dl (32.0-36.5); MEAN CORPUSCULAR VOLUME 83.9 fl (80.0-96.0); PLATELET COUNT, AUTOMATED 173 10^3/uL (150-450); RED BLOOD COUNT 5.04 10^6/uL (4.30-6.10); WHITE BLOOD COUNT 6.5 10^3/uL (4.0-10.0)
[2024-06-06 07:39] LABS: ALBUMIN 2.8 G/DL (3.2-5.2); ALKALINE PHOSPHATASE 62 U/L (40-129); ALT/SGPT 12 U/L (7.0-40); AST/SGOT 29 U/L (<34); BILIRUBIN,TOTAL 0.6 MG/DL (0.3-1.2); BLOOD UREA NITROGEN 17 MG/DL (9-23); CALCIUM LEVEL 8.6 MG/DL (8.3-10.6); CARBON DIOXIDE LEVEL 30 MMOL/L (20-31); CHLORIDE LEVEL 106 MMOL/L (98-107); CREATININE FOR GFR 0.85 MG/DL (0.70-1.30); GLOMERULAR FILTRATION RATE > 60.0 (>35); GLUCOSE, FASTING 89 MG/DL (74-106); POTASSIUM SERUM 3.2 MMOL/L (3.5-5.1); SODIUM LEVEL 140 MMOL/L (136-145); TOTAL PROTEIN 6.1 G/DL (5.7-8.2)
[2024-06-06 12:00] VITALS: BP 147/83; TEMP 97.7; O2SAT 96
[2024-06-06 14:00] VITALS: BP 125/65
[2024-06-06] MEDS: POTASSIUM CHLORIDE 10MEQ SR TABLET PO ONE (15:33)
[2024-06-06 16:53] LABS: HEMATOCRIT 42.9 % (42.0-52.0); HEMOGLOBIN 13.7 g/dl (13.5-17.5); MEAN CORPUSCULAR HEMOGLOBIN 27.1 pg (27.0-33.0); MEAN CORPUSCULAR HGB CONC 31.9 g/dl (32.0-36.5); MEAN CORPUSCULAR VOLUME 84.8 fl (80.0-96.0); PLATELET COUNT, AUTOMATED 167 10^3/uL (150-450); RED BLOOD COUNT 5.06 10^6/uL (4.30-6.10); WHITE BLOOD COUNT 6.6 10^3/uL (4.0-10.0)
[2024-06-06 20:00] VITALS: BP_SYST 122; BP_SYST 130; BP_DIAS 63; BP_DIAS 80; TEMP 97.2; O2SAT 94
[2024-06-07 00:41] LABS: HEMATOCRIT 43.3 % (42.0-52.0); HEMOGLOBIN 13.9 g/dl (13.5-17.5); MEAN CORPUSCULAR HGB CONC 32.1 g/dl (32.0-36.5); MEAN CORPUSCULAR VOLUME 84.1 fl (80.0-96.0); PLATELET COUNT, AUTOMATED 170 10^3/uL (150-450); RED BLOOD COUNT 5.15 10^6/uL (4.30-6.10); WHITE BLOOD COUNT 6.6 10^3/uL (4.0-10.0)
[2024-06-07 04:00] VITALS: BP 121/63; TEMP 97.5; O2SAT 96
[2024-06-07 06:45] LABS: ALBUMIN 2.7 G/DL (3.2-5.2); ALKALINE PHOSPHATASE 61 U/L (40-129); ALT/SGPT 15 U/L (7.0-40); AST/SGOT 28 U/L (<34); BILIRUBIN,TOTAL 0.5 MG/DL (0.3-1.2); BLOOD UREA NITROGEN 14 MG/DL (9-23); CALCIUM LEVEL 8.8 MG/DL (8.3-10.6); CARBON DIOXIDE LEVEL 29 MMOL/L (20-31); CHLORIDE LEVEL 108 MMOL/L (98-107); CREATININE FOR GFR 0.85 MG/DL (0.70-1.30); GLOMERULAR FILTRATION RATE > 60.0 (>35); GLUCOSE, FASTING 93 MG/DL (74-106); POTASSIUM SERUM 3.7 MMOL/L (3.5-5.1); SODIUM LEVEL 142 MMOL/L (136-145); TOTAL PROTEIN 6.1 G/DL (5.7-8.2)
[2024-06-07 08:41] LABS: HEMATOCRIT 42.4 % (42.0-52.0); HEMOGLOBIN 13.5 g/dl (13.5-17.5); MEAN CORPUSCULAR HEMOGLOBIN 27.1 pg (27.0-33.0); MEAN CORPUSCULAR HGB CONC 31.8 g/dl (32.0-36.5); MEAN CORPUSCULAR VOLUME 85.1 fl (80.0-96.0); PLATELET COUNT, AUTOMATED 151 10^3/uL (150-450); RED BLOOD COUNT 4.98 10^6/uL (4.30-6.10); WHITE BLOOD COUNT 5.1 10^3/uL (4.0-10.0)
[2024-06-07 12:00] VITALS: BP 133/75; TEMP 97.7; O2SAT 93
[2024-06-07 16:28] LABS: HEMATOCRIT 41.8 % (42.0-52.0); HEMOGLOBIN 13.5 g/dl (13.5-17.5); MEAN CORPUSCULAR HEMOGLOBIN 27.4 pg (27.0-33.0); MEAN CORPUSCULAR HGB CONC 32.3 g/dl (32.0-36.5); MEAN CORPUSCULAR VOLUME 84.8 fl (80.0-96.0); PLATELET COUNT, AUTOMATED 156 10^3/uL (150-450); RED BLOOD COUNT 4.93 10^6/uL (4.30-6.10); WHITE BLOOD COUNT 5.3 10^3/uL (4.0-10.0)
[2024-06-07 17:19] VITALS: BP 117/76
[2024-06-07] MEDS: IRON SUCROSE 100MG 5ML VIAL IV ONE (18:22)
[2024-06-07 20:00] VITALS: BP 121/79; TEMP 97.7; O2SAT 97
[2024-06-07 21:00] VITALS: BP 133/75
[2024-06-08 01:10] LABS: HEMATOCRIT 41.4 % (42.0-52.0); HEMOGLOBIN 13.2 g/dl (13.5-17.5); MEAN CORPUSCULAR HEMOGLOBIN 27.1 pg (27.0-33.0); MEAN CORPUSCULAR HGB CONC 31.9 g/dl (32.0-36.5); PLATELET COUNT, AUTOMATED 172 10^3/uL (150-450); RED BLOOD COUNT 4.87 10^6/uL (4.30-6.10); WHITE BLOOD COUNT 6.5 10^3/uL (4.0-10.0)
[2024-06-08 04:00] VITALS: BP 122/64; TEMP 97.7; O2SAT 96
[2024-06-08 06:12] LABS: HEMATOCRIT 39.9 % (42.0-52.0); HEMOGLOBIN 12.7 g/dl (13.5-17.5); MEAN CORPUSCULAR HEMOGLOBIN 26.8 pg (27.0-33.0); MEAN CORPUSCULAR HGB CONC 31.8 g/dl (32.0-36.5); MEAN CORPUSCULAR VOLUME 84.2 fl (80.0-96.0); PLATELET COUNT, AUTOMATED 159 10^3/uL (150-450); RED BLOOD COUNT 4.74 10^6/uL (4.30-6.10); WHITE BLOOD COUNT 5.1 10^3/uL (4.0-10.0)
[2024-06-08 06:35] LABS: ALBUMIN 2.7 G/DL (3.2-5.2); ALKALINE PHOSPHATASE 59 U/L (40-129); ALT/SGPT 12 U/L (7.0-40); AST/SGOT 29 U/L (<34); BILIRUBIN,TOTAL 0.4 MG/DL (0.3-1.2); BLOOD UREA NITROGEN 16 MG/DL (9-23); CALCIUM LEVEL 8.6 MG/DL (8.3-10.6); CARBON DIOXIDE LEVEL 26 MMOL/L (20-31); CHLORIDE LEVEL 108 MMOL/L (98-107); GLOMERULAR FILTRATION RATE > 60.0 (>35); GLUCOSE, FASTING 96 MG/DL (74-106); POTASSIUM SERUM 3.7 MMOL/L (3.5-5.1); SODIUM LEVEL 141 MMOL/L (136-145)
[2024-06-08 08:00] VITALS: BP 139/73
[2024-06-08] MEDS: METOPROLOL SUCC (TopROL XL) 50MG **XL** TAB PO SCH (08:55)
[2024-06-08] MEDS: METOCLOPRAMIDE 5 MG TAB PO SCH (08:55)
[2024-06-08 12:00] VITALS: BP 132/71; TEMP 97.2; O2SAT 97
[2024-06-08] MEDS: SYMBICORT 80/4.5MCG INHALER 6GM INH SCH (13:17)
[2024-06-08 14:00] VITALS: BP 109/57
[2024-06-08 16:35] LABS: HEMATOCRIT 44.3 % (42.0-52.0); HEMOGLOBIN 13.7 g/dl (13.5-17.5); MEAN CORPUSCULAR HEMOGLOBIN 26.6 pg (27.0-33.0); MEAN CORPUSCULAR HGB CONC 30.9 g/dl (32.0-36.5); MEAN CORPUSCULAR VOLUME 85.9 fl (80.0-96.0); PLATELET COUNT, AUTOMATED 174 10^3/uL (150-450); RED BLOOD COUNT 5.16 10^6/uL (4.30-6.10); WHITE BLOOD COUNT 5.5 10^3/uL (4.0-10.0)
[2024-06-08 20:29] VITALS: BP 118/78; TEMP 97.7; O2SAT 98
[2024-06-08 22:23] VITALS: BP 127/98
[2024-06-08] MEDS: NORCO, ANEXSIA 5/325MG TABLET (HYDROcodone/ACETAMINOPHEN) PO PRN (23:03)
[2024-06-09] VITALS (33 sets, daily range): BP systolic 84–193; BP diastolic 50–98; TEMP 96.8–98.3; O2SAT 80–98
[2024-06-09 05:56] LABS: HEMATOCRIT 41.2 % (42.0-52.0); HEMOGLOBIN 13.2 g/dl (13.5-17.5); MEAN CORPUSCULAR HEMOGLOBIN 26.9 pg (27.0-33.0); MEAN CORPUSCULAR VOLUME 84.1 fl (80.0-96.0); PLATELET COUNT, AUTOMATED 158 10^3/uL (150-450); WHITE BLOOD COUNT 4.8 10^3/uL (4.0-10.0)
[2024-06-09 06:28] LABS: ALBUMIN 2.8 G/DL (3.2-5.2); ALKALINE PHOSPHATASE 59 U/L (40-129); ALT/SGPT 15 U/L (7.0-40); AST/SGOT 27 U/L (<34); BILIRUBIN,TOTAL 0.5 MG/DL (0.3-1.2); BLOOD UREA NITROGEN 11 MG/DL (9-23); CALCIUM LEVEL 8.7 MG/DL (8.3-10.6); CARBON DIOXIDE LEVEL 27 MMOL/L (20-31); CHLORIDE LEVEL 105 MMOL/L (98-107); CREATININE FOR GFR 0.81 MG/DL (0.70-1.30); GLOMERULAR FILTRATION RATE > 60.0 (>35); GLUCOSE, FASTING 86 MG/DL (74-106); POTASSIUM SERUM 3.4 MMOL/L (3.5-5.1); SODIUM LEVEL 140 MMOL/L (136-145); TOTAL PROTEIN 6.2 G/DL (5.7-8.2)
[2024-06-09] MEDS: LORazepam 2 MG/ML 1ML VIAL IV STA (07:06)
[2024-06-09] MEDS ORDERED: LIDOCAINE 1% MDV 20ML VIAL As Ordered ONE (07:50)
[2024-06-09] MEDS ORDERED: ISOVUE-300 61% 100ML VIAL As Ordered ONE (07:50)
[2024-06-09] MEDS ORDERED: LIDOCAINE 2% 100MG/5ML SDV (FOR ANES.) As Ordered ONE (08:25)
[2024-06-09] MEDS ORDERED: propofoL 200 MG/20 ML VIAL As Ordered ONE (08:25)
[2024-06-09] MEDS ORDERED: fentaNYL 100 MCG/2 ML INJECTION As Ordered ONE (08:28)
[2024-06-09] MEDS ORDERED: MIDAZOLAM INJ 2MG/2ML VIAL As Ordered ONE (08:29)
[2024-06-09] MEDS: NS (Normal Saline) 0.9% 1,000 ML IV SCH (08:40)
[2024-06-09] MEDS: POTASSIUM CHLORIDE 10% LIQ 20MEQ/15ML UDC PO ONE (09:00)
[2024-06-09] MEDS: HALOPERIDOL LACTATE 5MG/ML VIAL IM PRN (11:05)
[2024-06-09] MEDS ORDERED: ACETAMINOPHEN 325 MG TAB As Ordered ONE (11:27)
[2024-06-09] MEDS: LORazepam 2 MG/ML 1ML VIAL IV ONE (12:06)
[2024-06-09] MEDS: LORazepam 2 MG TAB PO PRN (13:54)
[2024-06-09] MEDS: METOPROLOL SUCC (TopROL XL) 50MG **XL** TAB PO ONE (14:22)
[2024-06-09] MEDS ORDERED: dexmedeTOMIDine (4MCG/ML)200MCG/50ML BTL (PRECEDEX) As Ordered ONE (15:00)
[2024-06-09] MEDS: dexmedeTOMidine 200 MCG in IV 1 EA IV SCH (15:20)
[2024-06-09] MEDS: chlordiazePOXIDE 25 MG CAP PO SCH (17:00)
[2024-06-09] MEDS: LR 1,000 ML IV STA (17:17)
[2024-06-09] MEDS: LR 1,000 ML IV SCH (18:00)
[2024-06-09] MEDS ORDERED: DOPamine HCL 400 MG in IV 1 EA IV SCH (18:25)
[2024-06-09] MEDS: LORazepam 2 MG/ML 1ML VIAL IV PRN (19:01)
[2024-06-09 20:47] LABS: CK-MB VALUE MASS 1.1 NG/ML (<3.6)
[2024-06-09 20:52] LABS: MB/CK RELATIVE INDEX 1.12 (< OR =4)
[2024-06-10] VITALS (17 sets, daily range): BP systolic 117–183; BP diastolic 44–124; TEMP 97.1–97.9; O2SAT 94–99
[2024-06-10 05:32] LABS: ALBUMIN 2.9 G/DL (3.2-5.2); ALKALINE PHOSPHATASE 64 U/L (40-129); ALT/SGPT 16 U/L (7.0-40); AST/SGOT 39 U/L (<34); BILIRUBIN,TOTAL 0.7 MG/DL (0.3-1.2); BLOOD UREA NITROGEN 7 MG/DL (9-23); CALCIUM LEVEL 8.8 MG/DL (8.3-10.6); CARBON DIOXIDE LEVEL 27 MMOL/L (20-31); CHLORIDE LEVEL 106 MMOL/L (98-107); CREATININE FOR GFR 0.69 MG/DL (0.70-1.30); GLOMERULAR FILTRATION RATE > 60.0 (>35); GLUCOSE, FASTING 87 MG/DL (74-106); POTASSIUM SERUM 3.7 MMOL/L (3.5-5.1); SODIUM LEVEL 140 MMOL/L (136-145); TOTAL PROTEIN 6.6 G/DL (5.7-8.2)
[2024-06-10] MEDS: MULTIVITAMIN/MINERALS LIQUID 15ML ORAL SYRINGE PO SCH (12:28)
[2024-06-10] MEDS: chlordiazePOXIDE 25 MG CAP PO SCH (17:36)
[2024-06-10] MEDS: MAG SULF 1GM/100ML (MAG RUN) 1 GM in IV 1 EA IV SCH (21:01)
[2024-06-10] MEDS: THIAMINE INJection 500 MG in NS 100 ML IV SCH (21:01)
[2024-06-10] MEDS: HEPARIN SOD (PORCINE) 5000UNITS/ML 1ML VIAL/SYRINGE SQ SCH (21:02)
[2024-06-11] VITALS (7 sets, daily range): BP systolic 99–154; BP diastolic 46–65; TEMP 97–98.2; O2SAT 95–99
[2024-06-11 05:21] LABS: HEMATOCRIT 46.1 % (42.0-52.0); HEMOGLOBIN 14.7 g/dl (13.5-17.5); MEAN CORPUSCULAR HEMOGLOBIN 26.9 pg (27.0-33.0); MEAN CORPUSCULAR HGB CONC 31.9 g/dl (32.0-36.5); MEAN CORPUSCULAR VOLUME 84.3 fl (80.0-96.0); PLATELET COUNT, AUTOMATED 183 10^3/uL (150-450); RED BLOOD COUNT 5.47 10^6/uL (4.30-6.10); WHITE BLOOD COUNT 6.1 10^3/uL (4.0-10.0)
[2024-06-11 05:50] LABS: BLOOD UREA NITROGEN 7 MG/DL (9-23); CALCIUM LEVEL 8.6 MG/DL (8.3-10.6); CARBON DIOXIDE LEVEL 28 MMOL/L (20-31); CHLORIDE LEVEL 105 MMOL/L (98-107); CREATININE FOR GFR 0.82 MG/DL (0.70-1.30); GLOMERULAR FILTRATION RATE > 60.0 (>35); GLUCOSE, FASTING 97 MG/DL (74-106); MAGNESIUM LEVEL 2.2 MG/DL (1.8-2.4); POTASSIUM SERUM 3.3 MMOL/L (3.5-5.1); SODIUM LEVEL 142 MMOL/L (136-145)
[2024-06-11] MEDS: POTASSIUM CHLORIDE 10% LIQ 20MEQ/15ML UDC GT ONE (06:48)
[2024-06-11] MEDS ORDERED: VARIBAR NECTAR 40% w/v 240ML SUSP BTL As Ordered ONE (11:08)
[2024-06-11] MEDS ORDERED: VARIBAR PUDDING 40% w/v 230ML TUBE As Ordered ONE (11:08)
[2024-06-11] MEDS ORDERED: E-Z-PAQUE 96% w/w SUSP 176GM BTL As Ordered ONE (11:08)
[2024-06-11] MEDS ORDERED: BARIUM SULFATE 700 MG TABLET (E-Z-DISK) As Ordered ONE (11:08)
[2024-06-11] MEDS ORDERED: chlordiazePOXIDE 25 MG CAP PO SCH (16:00)
[2024-06-12] VITALS: BP 111/67; TEMP 97.8; O2SAT 96
[2024-06-12 03:41] VITALS: BP 135/65; TEMP 97.7; O2SAT 96
[2024-06-12 05:50] LABS: BASO # 0.1 10^3/uL (0.0-0.2); BASO % 0.9 % (0.0-1.0); EOS # 0.2 10^3/uL (0.0-0.5); EOS % 3.4 % (0.0-3.0); HEMATOCRIT 42.5 % (42.0-52.0); HEMOGLOBIN 13.6 g/dl (13.5-17.5); LYMPH # 1.9 10^3/uL (1.5-5.0); MEAN CORPUSCULAR HEMOGLOBIN 27.1 pg (27.0-33.0); MEAN CORPUSCULAR VOLUME 84.8 fl (80.0-96.0); MONO # 0.5 10^3/uL (0.0-0.8); NEUTROPHILS % 54.3 % (36.0-66.0); PLATELET COUNT, AUTOMATED 200 10^3/uL (150-450); RED BLOOD COUNT 5.01 10^6/uL (4.30-6.10); WHITE BLOOD COUNT 5.6 10^3/uL (4.0-10.0)
[2024-06-12 06:05] LABS: BLOOD UREA NITROGEN 9 MG/DL (9-23); CALCIUM LEVEL 8.4 MG/DL (8.3-10.6); CARBON DIOXIDE LEVEL 26 MMOL/L (20-31); CHLORIDE LEVEL 108 MMOL/L (98-107); CREATININE FOR GFR 0.83 MG/DL (0.70-1.30); GLOMERULAR FILTRATION RATE > 60.0 (>35); GLUCOSE, FASTING 96 MG/DL (74-106); POTASSIUM SERUM 3.9 MMOL/L (3.5-5.1); SODIUM LEVEL 141 MMOL/L (136-145)
[2024-06-12] MEDS ORDERED: OLANZapine INTRAMUSCULAR 10MG VIAL IM ONE (08:55)
[2024-06-12] MEDS ORDERED: QUEtiapine FUMARATE 25 MG TAB PO SCH (09:00)
[2024-06-12] MEDS: OLANZapine INTRAMUSCULAR 10MG VIAL IM ONE ×2 (09:06→22:37)
[2024-06-12] MEDS: LORazepam 2 MG/ML 1ML VIAL IV SCH (10:04)
[2024-06-12] MEDS: LORazepam 2 MG/ML 1ML VIAL IV STA ×2 (10:27→14:48)
[2024-06-12] MEDS: diazePAM 10MG/2ML SYRINGE IV ONE (13:55)
[2024-06-12] MEDS: LR 1,000 ML IV SCH (15:09)
[2024-06-12] MEDS ORDERED: OLANZapine INTRAMUSCULAR 10MG VIAL IM PRN (17:40)
[2024-06-12 17:45] VITALS: BP 157/93; O2SAT 95
[2024-06-12] MEDS: diazePAM 10MG/2ML SYRINGE IV SCH (17:59)
[2024-06-12] MEDS: ACETAMINOPHEN *IV* 1,000 MG in IV 1 EA IV ONE (20:00)
[2024-06-12 20:05] VITALS: BP 160/83; TEMP 97.8; O2SAT 96
[2024-06-12] MEDS: D5W/LR 1,000 ML IV SCH (20:26)
[2024-06-12] MEDS: chlordiazePOXIDE 25 MG CAP PO SCH (20:26)
[2024-06-12 21:00] VITALS: BP 161/77; O2SAT 97
[2024-06-13] VITALS (10 sets, daily range): BP systolic 124–180; BP diastolic 70–102; TEMP 97.7–98; O2SAT 93–97
[2024-06-13 04:49] LABS: BASO # 0.1 10^3/uL (0.0-0.2); BASO % 1.1 % (0.0-1.0); EOS # 0.2 10^3/uL (0.0-0.5); EOS % 3.6 % (0.0-3.0); HEMATOCRIT 46.8 % (42.0-52.0); HEMOGLOBIN 15.2 g/dl (13.5-17.5); LYMPH # 1.6 10^3/uL (1.5-5.0); LYMPH % 28.5 % (24.0-44.0); MEAN CORPUSCULAR HEMOGLOBIN 27.5 pg (27.0-33.0); MEAN CORPUSCULAR HGB CONC 32.5 g/dl (32.0-36.5); MEAN CORPUSCULAR VOLUME 84.6 fl (80.0-96.0); MONO # 0.5 10^3/uL (0.0-0.8); MONO % 9.5 % (2.0-8.0); NEUTROPHILS # 3.2 10^3/uL (1.5-8.5); NEUTROPHILS % 57.1 % (36.0-66.0); PLATELET COUNT, AUTOMATED 228 10^3/uL (150-450); RED BLOOD COUNT 5.53 10^6/uL (4.30-6.10); WHITE BLOOD COUNT 5.6 10^3/uL (4.0-10.0)
[2024-06-13 05:30] LABS: BLOOD UREA NITROGEN 6 MG/DL (9-23); CALCIUM LEVEL 8.7 MG/DL (8.3-10.6); CARBON DIOXIDE LEVEL 24 MMOL/L (20-31); CHLORIDE LEVEL 113 MMOL/L (98-107); CREATININE FOR GFR 0.78 MG/DL (0.70-1.30); GLOMERULAR FILTRATION RATE > 60.0 (>35); GLUCOSE, FASTING 99 MG/DL (74-106); POTASSIUM SERUM 3.7 MMOL/L (3.5-5.1); SODIUM LEVEL 148 MMOL/L (136-145)
[2024-06-13] MEDS: D5W 1,000 ML IV SCH (14:50)
[2024-06-13] MEDS: chlordiazePOXIDE 25 MG CAP PO SCH (16:35)
[2024-06-14] VITALS (12 sets, daily range): BP systolic 117–147; BP diastolic 59–83; TEMP 97.6–98.8; O2SAT 93–95
[2024-06-14 04:57] LABS: BASO # 0.1 10^3/uL (0.0-0.2); BASO % 0.6 % (0.0-1.0); EOS # 0.1 10^3/uL (0.0-0.5); EOS % 1.5 % (0.0-3.0); HEMATOCRIT 48.1 % (42.0-52.0); HEMOGLOBIN 15.1 g/dl (13.5-17.5); LYMPH # 2.1 10^3/uL (1.5-5.0); LYMPH % 22.8 % (24.0-44.0); MEAN CORPUSCULAR HEMOGLOBIN 27.1 pg (27.0-33.0); MEAN CORPUSCULAR HGB CONC 31.4 g/dl (32.0-36.5); MEAN CORPUSCULAR VOLUME 86.4 fl (80.0-96.0); MONO # 0.7 10^3/uL (0.0-0.8); MONO % 7.6 % (2.0-8.0); NEUTROPHILS # 6.1 10^3/uL (1.5-8.5); NEUTROPHILS % 67.3 % (36.0-66.0); PLATELET COUNT, AUTOMATED 217 10^3/uL (150-450); RED BLOOD COUNT 5.57 10^6/uL (4.30-6.10)
[2024-06-14 05:21] LABS: ALBUMIN 2.9 G/DL (3.2-5.2); ALKALINE PHOSPHATASE 80 U/L (40-129); ALT/SGPT 19 U/L (7.0-40); AST/SGOT 31 U/L (<34); BILIRUBIN,TOTAL 0.7 MG/DL (0.3-1.2); BLOOD UREA NITROGEN 5 MG/DL (9-23); CALCIUM LEVEL 8.7 MG/DL (8.3-10.6); CARBON DIOXIDE LEVEL 22 MMOL/L (20-31); CHLORIDE LEVEL 109 MMOL/L (98-107); CREATININE FOR GFR 0.73 MG/DL (0.70-1.30); GLOMERULAR FILTRATION RATE > 60.0 (>35); GLUCOSE, FASTING 110 MG/DL (74-106); MAGNESIUM LEVEL 1.6 MG/DL (1.8-2.4); PHOSPHORUS LEVEL 2.8 MG/DL (2.4-5.1); SODIUM LEVEL 143 MMOL/L (136-145); TOTAL PROTEIN 6.5 G/DL (5.7-8.2)
[2024-06-14] MEDS: MAG SULF 1GM/100ML (MAG RUN) 1 GM in IV 1 EA IV ONE (06:03)
[2024-06-14] MEDS: THIAMINE INJection 500 MG in NS 100 ML IV SCH ×2 (08:38→16:41)
[2024-06-14] MEDS ORDERED: METOPROLOL 5 MG/5 ML VIAL IV PRN (10:45)
[2024-06-14] MEDS: DOXYCYCLINE HYCLATE 100MG TABLET PO SCH (11:28)
[2024-06-14] MEDS: LEVALBUTEROL 1.25MG 0.5ML CONCENTRATE NEB INH SCH (13:51)
[2024-06-14 14:00] LABS: PROCALCITONIN 0.07 ng/ml
[2024-06-14] MEDS: MAG SULF 1GM/100ML (MAG RUN) 1 GM in IV 1 EA IV SCH (14:43)
[2024-06-14] MEDS: FORMOTEROL FUMARATE 20 MCG/2 ML INHALATION SOLUTION (PERFOROMIST) INH SCH (19:41)
[2024-06-14] MEDS: LABETALOL 100MG/20ML VIAL IV PRN (20:15)
[2024-06-14] MEDS: chlordiazePOXIDE 25 MG CAP NG SCH (20:15)
[2024-06-14] MEDS ORDERED: chlordiazePOXIDE 25 MG CAP PO SCH (21:00)
[2024-06-15 05:29] LABS: BASO % 0.5 % (0.0-1.0); EOS # 0.1 10^3/uL (0.0-0.5); EOS % 1.2 % (0.0-3.0); HEMOGLOBIN 14.7 g/dl (13.5-17.5); LYMPH # 1.7 10^3/uL (1.5-5.0); LYMPH % 19.5 % (24.0-44.0); MEAN CORPUSCULAR VOLUME 84.6 fl (80.0-96.0); MONO # 0.7 10^3/uL (0.0-0.8); MONO % 7.6 % (2.0-8.0); NEUTROPHILS # 6.1 10^3/uL (1.5-8.5); NEUTROPHILS % 70.9 % (36.0-66.0); PLATELET COUNT, AUTOMATED 248 10^3/uL (150-450); RED BLOOD COUNT 5.44 10^6/uL (4.30-6.10); WHITE BLOOD COUNT 8.6 10^3/uL (4.0-10.0)
[2024-06-15 05:48] LABS: ALBUMIN 2.7 G/DL (3.2-5.2); ALKALINE PHOSPHATASE 88 U/L (40-129); ALT/SGPT 14 U/L (7.0-40); AST/SGOT 24 U/L (<34); BILIRUBIN,TOTAL 0.7 MG/DL (0.3-1.2); BLOOD UREA NITROGEN 10 MG/DL (9-23); CALCIUM LEVEL 8.5 MG/DL (8.3-10.6); CARBON DIOXIDE LEVEL 23 MMOL/L (20-31); CHLORIDE LEVEL 108 MMOL/L (98-107); CREATININE FOR GFR 0.92 MG/DL (0.70-1.30); GLOMERULAR FILTRATION RATE > 60.0 (>35); GLUCOSE, FASTING 111 MG/DL (74-106); POTASSIUM SERUM 3.9 MMOL/L (3.5-5.1); SODIUM LEVEL 141 MMOL/L (136-145); TOTAL PROTEIN 6.3 G/DL (5.7-8.2)
[2024-06-15 05:55] VITALS: BP 113/65; TEMP 97.4; O2SAT 94
[2024-06-15 06:15] VITALS: BP 129/69; TEMP 101; O2SAT 93
[2024-06-15] MEDS ORDERED: PIPERACILLIN/TAZOBACTAM SOD 3.375 GM in DEXTROSE 5% (D5W) ADV/MINI-BAG 50 ML IV SCH (07:25)
[2024-06-15 07:56] LABS: MAGNESIUM LEVEL 2.2 MG/DL (1.8-2.4)
[2024-06-15 08:06] LABS: PROCALCITONIN 0.1 ng/ml
[2024-06-15 08:13] LABS: APPEARANCE, URINE CLOUDY (CLEAR); BACTERIA, URINE AUTO 1+ (NEGATIVE); BILIRUBIN, URINE AUTO NEGATIVE (NEGATIVE); BLOOD, URINE BLOOD 3+ (NEGATIVE); COLOR, URINE AMBER (YELLOW); GLUCOSE, URINE (UA) AUTO NEGATIVE (NEGATIVE); KETONE, URINE AUTO NEGATIVE (NEGATIVE); LEUKOCYTE ESTERASE, URINE AUTO 1+ (NEGATIVE); MUCUS, URINE LARGE (NEGATIVE); NITRITE, URINE AUTO NEGATIVE (NEGATIVE); PROTEIN, URINE AUTO 2+ mg/dL (NEGATIVE); RBC, URINE AUTO TNTC /HPF (0-3); SPECIFIC GRAVITY URINE AUTO 1.019 (1.002-1.035); SQUAMOUS EPITHELIAL CELL UR AU 1 /HPF (0-6); UROBILINOGEN, URINE AUTO 0.2 mg/dL (0.0-2.0); WBC, URINE AUTO 97 /HPF (0-3)
[2024-06-15 08:31] VITALS: BP 115/63; TEMP 97.8; O2SAT 97
[2024-06-15] MEDS: BUDESONIDE 0.5 MG/2 ML INHALATION SUSPENSION NEB SCH (09:13)
[2024-06-15] MEDS: ACETAMINOPHEN *IV* 1,000 MG in IV 1 EA IV ONE (10:24)
[2024-06-15] MEDS: FOLIC ACID 1MG TAB NG SCH (10:25)
[2024-06-15] MEDS: PIPERACILLIN/TAZOBACTAM SOD 4.5 GM in DEXTROSE 5% (D5W) ADV/MINI-BAG 50 ML IV SCH (10:29)
[2024-06-15 11:59] LABS: ABG BASE EXCESS -1.1 (-2.0-2.0); ABG HCO3 22.5 MMOL/L (22.0-26.0); ABG O2 SATURATION 94.8 % (95.0-99.0); ABG PARTIAL PRESSURE CO2 34.5 mmHg (35.0-45.0); ABG PARTIAL PRESSURE O2 70.5 mmHg (75.0-100.0); ABG STANDARD HCO3 23.5 MMOL/L. (22.0-26.0); ABG TOTAL CO2 23.6 MMOL/L (23.0-31.0); ABG pH (ARTERIAL) 7.433 UNITS (7.350-7.450)
[2024-06-15] MEDS ORDERED: SODIUM CHLORIDE HYPERTONIC 3% 4ML NEB SOL INH SCH (14:00)
[2024-06-15] MEDS: SCOPOLAMINE 1MG TRANSDERMAL PATCH TOP PRN (14:36)
[2024-06-15] MEDS: MORPHINE 10MG/0.5ML ORAL CONCENTRATE SOLUTION U/D SL PRN ×2 (15:35→21:44)
[2024-06-15] MEDS: LORazepam 1 MG TAB PO PRN (16:11)
[2024-06-15] MEDS: ATROPINE SULFATE 1% OPHTH SOLN 2ML BTL SL PRN (16:11)
[2024-06-15] MEDS ORDERED: ACETAMINOPHEN 650MG SUPP PR PRN (21:15)
[2024-06-15] MEDS ORDERED: ACETAMINOPHEN 325 MG TAB PO PRN (21:15)
[2024-06-15] MEDS ORDERED: MORPHINE 2 MG/ML 1ML VIAL IV PRN (21:15)
[2024-06-15] MEDS ORDERED: LORazepam 2 MG/ML 1ML VIAL IV PRN (21:15)
[2024-06-17] MEDS: LORazepam 1 MG TAB PO PRN (08:08)
[2024-06-17] MEDS: MORPHINE 10MG/0.5ML ORAL CONCENTRATE SOLUTION U/D SL PRN (13:02)
[2024-06-17] MEDS: HYOSCYAMINE SULFATE 0.125 MG SUBL TABLET PO PRN (13:25)
== END 2024-06-18 02:20 | disposition expired | DRG 368 ==
LOC: M ED 12:37 → EDBD 12:37 → M ED INP 16:28 → M MSPAV 17:44 → M ICU 06-09 14:59 → M PCU 06-11 16:21 → M ICU 06-12 17:30 → M PCU 06-15 06:12 → M MSPAV 06-16 21:05
PROVIDERS: ADMIT Internal Medicine; ATTEND Internal Medicine
PROC: 06H03DZ Insertion of Intraluminal Device into Inferior Vena Cava, Percutaneous Approach (ICD-10-PCS; principal; 2024-06-09 08:30)
DX: K20.81 Other esophagitis with bleeding (principal); K29.21 Alcoholic gastritis with bleeding; G93.41 Metabolic encephalopathy; J69.0 Pneumonitis due to inhalation of food and vomit; A41.9 Sepsis, unspecified organism; F10.231 Alcohol dependence with withdrawal delirium; J98.11 Atelectasis; K70.30 Alcoholic cirrhosis of liver without ascites; I16.0 Hypertensive urgency; I10 Essential (primary) hypertension; K57.90 Diverticulosis of intestine, part unspecified, without perforation or abscess without bleeding; K22.70 Barrett's esophagus without dysplasia; G89.29 Other chronic pain; M48.07 Spinal stenosis, lumbosacral region; M54.9 Dorsalgia, unspecified; R42 Dizziness and giddiness; R07.89 Other chest pain; G57.90 Unspecified mononeuropathy of unspecified lower limb; I95.1 Orthostatic hypotension; J44.9 Chronic obstructive pulmonary disease, unspecified; K31.84 Gastroparesis; I44.1 Atrioventricular block, second degree; R13.10 Dysphagia, unspecified; R00.1 Bradycardia, unspecified; R33.9 Retention of urine, unspecified; R53.1 Weakness; E83.42 Hypomagnesemia; Z86.718 Personal history of other venous thrombosis and embolism; Z86.711 Personal history of pulmonary embolism; D50.9 Iron deficiency anemia, unspecified; Z91.148 Patient's other noncompliance with medication regimen for other reason; K44.9 Diaphragmatic hernia without obstruction or gangrene; Z98.41 Cataract extraction status, right eye; Z98.42 Cataract extraction status, left eye; N20.0 Calculus of kidney; Z79.01 Long term (current) use of anticoagulants; Z79.899 Other long term (current) drug therapy; G31.2 Degeneration of nervous system due to alcohol; Z51.5 Encounter for palliative care